=== PATIENT | female | born 1995 | race Caucasian/White ===

== ENCOUNTER → 2018-06-18 12:46 | Outpatient (CLI) | payer MEDICAID, SELFPAY ==
--- NOTE | 2018-06-18 12:52 | RAD_ITS ---
STUDY: X-RAY - RIGHT HAND REASON FOR EXAM: Female, 23 years old. Hand and wrist pain. No known trauma. TECHNIQUE: Three view(s) of the hand. COMPARISON: None. FINDINGS: Bones: There are no acute osseous abnormalities. Joints: The joints are unremarkable. Soft tissues: The soft tissues are unremarkable. Foreign body: None RAD/Hand Min 3 Views IMPRESSION: No acute abnormalities are seen in the hand. Electronically Signed: Elbert Glez MD at 13:04 EDT , Service support ,
== END ==
PROVIDERS: Visit Provider Orthopaedic Surgery
DX: M79.641 Pain in right hand (principal)
CPT/HCPCS: 73130

== ENCOUNTER 2019-03-20 15:50 | Inpatient (IN) | payer MEDICAID, SELFPAY ==
[2019-03-20] MEDS: Lactated Ringers 1,000 ML 50 ML IV (15:57)
[2019-03-20 16:06] VITALS: BMI 23.8
--- NOTE | 2019-03-20 16:30 | HP.PCM_ITS ---
- Problem List (1) 39 weeks gestation of Status: Acute (2) Active labor at term Status: Acute (3) Insufficient care Status: Acute (4) Late care Status: Acute (5) Drug use affecting Status: Acute (6) Tobacco use Status: Acute (7) Rh negative state in antepartum period Status: Acute (8) Anemia affecting Status: Acute History Date of Admission: 03/20/19 Final RAFFY: 03/24/19 Final RAFFY Source: US >20 weeks Gestational age: 39 Weeks and 3 Days History of this : This is a 23 year-old, G 2, P 1001, at 39 weeks gestational age who presents in active labor at 6 cm dilated with a bulging bag of water. Allergies No Known Allergies Allergy (Verified 03/20/19 16:17) Home Medications: Home Medications No122/Iron/Folic Acid [ Multi Tablet] 1 each PO 03/20/19 Smoking Status: Current every day smoker Alcohol: None Substance Use Type: Marijuana Number of Fetus(es): 1 Heart Tracing: Category 2 TOCO Analysis: Regular ctx's History Past Pregnancies: Past Pregnancies Delivery Date Name GA/Weeks Outcome Route Weight Infant Gender Labor Length Anesthesia Delivery Location Provider FOB 40 6lb 13oz Labs: 1 hr GTT normal GBS unknown Hgb 10.6 B negative Antibody screen negative Syphilis neg RI Hep B neg HIV neg Urine cx + UTI, CFC neg Rapid trich neg GC/CT neg UDS + amphetamine and marijuana Expected Infant Delivery Method: Spontaneous Vaginal Number of Visits: 4 visits, patient was late to care and had insufficient care Review of Systems Gynecological: Reports: - - +Ctx's Physical Exam General: Alert, - - Uncomfortable with ctx's HEENT: Atraumatic Lungs: - - No increased resp effort Abdomen: Gravid Extremities:: No edema Neurological: Neuro grossly intact BLOW MOULDING MACHINE OPERATOR: Normal external genitalia Estimated gestational size: Appropriate for gestational size Presentation: Cephalic Cervix Dilation (cm): 6 Station: -1 Effacement (%): 90 Assessment/Plan All Active Problems 39 weeks gestation of (Acute) Active labor at term (Acute) Insufficient care (Acute) Late care (Acute) Drug use affecting (Acute) Tobacco use (Acute) Rh negative state in antepartum period (Acute) Anemia affecting (Acute) This is a 23 year-old, G2, P1001, at 39 weeks gestational age who presents in active labor at 6 cm dilated with a bulging bag of water. Patient was late to care and only had 4 visits. Was last seen at 28 wks. After 28 wks she either did not show for appointments, or cancelled her appointments. - Routine intrapartum care - UDS on admission. Patient states she was using meth in the and last used around 22 weeks. She continued to use marijuana throughout the per her report - GBS unknown - See delivery note - Will also get hepatitis C
[2019-03-20 16:58] LABS: Amphetamine Urine VISTA NEGATIVE (<1000 ng/mL); Barbiturate Urine VISTA NEGATIVE (< 200 ng/mL); Benzodiazepine Urine VISTA NEGATIVE (< 200 ng/mL); Cocaine Urine VISTA NEGATIVE (< 300 ng/mL); Ecstacy Urine VISTA NEGATIVE (< 500 ng/mL); Methadone Urine VISTA NEGATIVE (< 300 ng/mL); PCP Urine VISTA NEGATIVE (< 25 ng/mL); THC Urine VISTA POSITIVE (< 50 ng/mL); Vista UDS pH Range 6
[2019-03-20] MEDS: Oxytocin 30 units/NS 500 ml 30 UNITS/500 ML IV.SOLN 334 UNITS IV (17:14)
[2019-03-20 17:22] LABS: Absolute Lymphocyte Count 2.59 X10^3/ul (0.83-4.51); Absolute Neutrophil Count 8.2 X10^3/uL (2.0-7.7); Basophil# 0.06 X10^3/uL; Basophil% 0.5 % (0-1); Eosinophils% 0.8 % (0-5); Hematocrit 37.4 % (37-47); Hemoglobin 12.1 g/dl (12.0-15.0); Lymphocyte # 2.59 X10^3/ul (4.0); Mean Corp Hgb Conc 32.4 g/gl (32-36); Mean Corpuscular Hgb 27.3 pg (27.0-32.0); Mean Corpuscular Volume 84.4 fL (81-99); Mean Platelet Vol. 10.9 fl (6.2-12.0); Monocyte# 1.33 X10^3/uL; Monocyte% 10.8 % (0-10); Neutrophil % 66.6 % (47-70); Platelet Count 319 K/mm3 (150-450); RBC Distribution Width CV 15.5 % (11.6-14.6); RBC Distribution Width SD 47.4 fl (35.1-43.9); Red Blood Count 4.43 M/mm3 (4.2-5.4); White Blood Count 12.3 K/mm3 (4.4-11.0)
[2019-03-20 17:28] LABS: POSITIVE COUNT NO; POSITIVE DIFFERENTIAL NO; POSITIVE MORPHOLOGY NO
[2019-03-20] MEDS: Oxytocin 30 units/NS 500 ml 30 UNITS/500 ML IV.SOLN 167 UNITS IV (17:45)
--- NOTE | 2019-03-20 17:57 | OP.PCM_ITS ---
Problem List (1) 39 weeks gestation of Status: Acute (2) Active labor at term Status: Acute (3) Insufficient care Status: Acute (4) Late care Status: Acute (5) Drug use affecting Status: Acute (6) Tobacco use Status: Acute (7) Rh negative state in antepartum period Status: Acute (8) Anemia affecting Status: Acute Report of Operation Date of Procedure: 03/20/19 Pre-Operative Diagnosis: 39 week gestation, active labor, late to care, scant care, drug use in the , tobacco use, rh negative status Post-Operative Diagnosis: As above Surgery/Procedure Performed:: VAVD Type of Anesthesia:: Local Specimen's removed: Placenta Drains: None Estimated Blood Loss (mL): 300 Description of Procedure: Patient presented 6 cm dilated with a bulging bag of water. AROM was performed for clear fluid. Patient then progressed quickly to complete with a reducible anterior lip. FHT with variable decelerations with each contraction and good variability in between. Patient pushing and anterior lip reduced. Patient uncomfortable with pushing and therefore there was poor maternal effort. FHT was then 80-90 bpm. Risks, benefits, and alternatives regarding a vacuum assisted vaginal delivery were discussed with the patient and she provided verbal consent. Bladder was emptied just prior to pushing. Station +2 and patient completely dilated. Baby in OA position. Vacuum was applied and used through 2 contractions with 1 pop-off. Vacuum was not reapplied after the 1 pop-off. Patient then pushed with the next 2 contractions, and a midline episiotomy was made. Ritgen maneuver was performed after the episiotomy to assist with delivery of the infant given poor maternal effort. Head, anterior shoulder, posterior shoulder delivered atraumatically. Viable delivered without any force or delay. Cord was clamped and cut immediately and handed off to nursery staff. Cord gases and cord blood were obtained. Placenta delivered intact with fundal massage. Placenta was normal in appearance. 3 vessel cord noted. Fundus firm and bleeding hemostatic. 1st degree tear repaired in usual fashion using 3- 0 vicryl after using local anesthetic. Grafts/Implants Used: None - Complications None - Admit VTE Documentation VTE Present on Admission: No VTE Mechan Device Prophylaxis: None VTE Pharm Prophylaxis ordered?: No Vaginal Delivery Maternal Presentation: Active Labor Amniotic Membrane Rupture Type: Artificial Amniotic Fluid Description: Clear Final RAFFY: 03/24/19 Final RAFFY Source: US >20 weeks Gestational age: 39 Weeks and 3 Days Date of Procedure: 03/20/19 Surgery/ Procedure Performed: Vacuum Assisted Vaginal Delivery Type of Anesthesia: Local with 1% lidocaine Presentation: Vertex Placental Delivery Description: Expressed Cord Vessel Description: 3 Vessels Cord Entanglement: None Estimated Blood Loss: 300 A gender: Male (1 minute): 8 (5 minute): 9 Episiotomy Description: Midline, 1st degree Laceration: 1st degree Medications given after delivery: IV Pitocin Complications: None Baby B - Information Amniotic Membrane Rupture Type: Artificial Presentation: Vertex - Operative Information Cord Entanglement: None Cord Vessel Description: 3 Vessels B gender: Male (1 minute): 8 (5 minute): 9
[2019-03-20 18:17] LABS: Group B Strep DNA By PCR Negative (Negative); Internal Control PASS; Probe Check PASS; Specimen Processing Control PASS
[2019-03-20] MEDS: Ibuprofen 600 MG Tablet PO (18:55)
[2019-03-21] VITALS (8 sets, daily range): BP systolic 118–149; BP diastolic 65–91; PULSE 65–97; RESP 16–18; TEMP 36.3–36.8; O2SAT 97–99
[2019-03-21] MEDS: Ibuprofen 600 MG Tablet PO ×3 (04:07→18:49)
--- NOTE | 2019-03-21 08:28 | PN.OBGYN_ITS ---
Patient Problems: Active and Suspected Problems 39 weeks gestation of (Acute) Active labor at term (Acute) Insufficient care (Acute) Late care (Acute) Drug use affecting (Acute) Tobacco use (Acute) Rh negative state in antepartum period (Acute) Anemia affecting (Acute) Subjective: Patient doing well. No DODGE, vision changes, abd pain, N/.V. [place] reg diet. Ambulating and voiding without difficulty. No CP, SOB, leg pain. . Lochia normal. Feels ready to go home - Physical Exam General: Alert, No apparent distress HEENT: Atraumatic Lungs: - - No increased resp effort Abdomen: Soft, Non Tender, - - FF@U-1 Extremities: No edema Skin: No rashes Neurological: Neuro grossly intact Psych/Mental Status: Normal Affect, Appropriate Vital Signs Temp Pulse Resp BP 98.3 F 74 18 149/91 H 03/21/19 04:08 03/21/19 04:08 03/21/19 04:08 03/21/19 04:08 Weight: 130 lb Body Mass Index (BMI) 23.8 Intake and Output for Last 24 Hours 03/19/19 03/20/19 03/21/19 23:59 23:59 23:59 Output Total 200 / 200 Balance -200 / -200 Laboratory Tests Past 24 Hrs 03/20/19 03/20/19 03/20/19 16:15 16:15 16:15 WBC 12.3 H RBC 4.43 Hgb 12.1 Hct 37.4 MCV 84.4 MCH 27.3 MCHC 32.4 RDW 15.5 H RDW Differential 47.4 H Plt Count 319 MPV 10.9 Immature Gran % (Auto) 0.300 Neut % (Auto) 66.6 Lymph % (Auto) 21.0 Pershing % (Auto) 10.8 H Eos % (Auto) 0.8 Baso % (Auto) 0.5 Absolute Neuts (auto) 8.2 H Absolute Lymphs (auto) 2.59 Total Counted Not Reportable Urine Opiates Screen Urine Methadone Screen Ur Barbiturates Screen Ur Phencyclidine Scrn Ur Amphetamines Screen U Methamphetamin-MDMA U Benzodiazepines Scrn Urine Cocaine Screen U Cannabinoids Screen Ur Drug Screen Comment Hepatitis C Ab (EIA) Group B Strep DNA Negative Specimen Comment Not Reportable Blood Type B NEGATIVE Antibody Screen NEGATIVE Screen Baby's Blood Type Baby's FOZIA 03/20/19 03/20/19 03/20/19 16:40 18:20 18:20 WBC RBC Hgb Hct MCV MCH MCHC RDW RDW Differential Plt Count MPV Immature Gran % (Auto) Neut % (Auto) Lymph % (Auto) Pershing % (Auto) Eos % (Auto) Baso % (Auto) Absolute Neuts (auto) Absolute Lymphs (auto) Total Counted Urine Opiates Screen NEGATIVE Urine Methadone Screen NEGATIVE Ur Barbiturates Screen NEGATIVE Ur Phencyclidine Scrn NEGATIVE Ur Amphetamines Screen NEGATIVE U Methamphetamin-MDMA NEGATIVE U Benzodiazepines Scrn NEGATIVE Urine Cocaine Screen NEGATIVE U Cannabinoids Screen POSITIVE H Ur Drug Screen Comment Hepatitis C Ab (EIA) Pending Group B Strep DNA Specimen Comment Blood Type Antibody Screen Screen NEGATIVE Baby's Blood Type AB POSITIVE Baby's FOZIA NEGATIVE Medical Necessity - Tobacco Use Smoking Status: Current every day smoker Assessment/Plan All Active Problems 39 weeks gestation of (Acute) Active labor at term (Acute) Insufficient care (Acute) Late care (Acute) Drug use affecting (Acute) Tobacco use (Acute) Rh negative state in antepartum period (Acute) Anemia affecting (Acute) PPD#1 s/p - Isolated mild range BP. No pre-e symptoms. Will continue to monitor throughout the day today. D/w pt if SBP's persistently 140's or greater will need to start BP medication, get pre-e labs, and monitor overnight - Otherwise AF, VSS - To see social work prior to discharge - Dispo: Patient desires to go home today. Likely d/c home if BP's normal
--- NOTE | 2019-03-21 08:28 | PCM.DCVAG ---
Discharge Diet: No Restrictions Discharge Activity: Return to Normal Activity, May Shower, May Take a Tub Bath May resume sexual activity in: 6 weeks Weight Bearing Status: Weight bearing as tolerated, Full weight bearing Lifting Restrictions: None Call your doctor if you observe: Fever of 101 or Higher, Inability to urinate, Inability to have a bowel movement, Using more than one pad per hour, Shortness of breath, Dizziness, Fainting spells, Chest pain, Increased palpitations (irregular heartbeat), Calf discomfort, Uncontrolled pain Instructions: After a Vaginal Additional Instructions: If you experience any of the following, contact your healthcare provider. Bleeding that soaks a pad every hour for 2 hours Fever 100.4 or higher Unrelieved incision or abdominal pain Swelling, redness, discharge or bleeding from your incision or episiotomy site Your incision begins to separate Problems urinating (including inability to urinate or burning while urinating). Visual changes Severe headache Flu-like symptoms Pain or redness in one of both of your breasts Pain, warmth, tenderness or swelling in your legs, especially the calf area Frequent nausea and vomiting Symptoms of depression or anxiety If you experience any of the following, call 911 or go to the nearest Emergency Room. Chest pain Problems breathing Seizure activity Partial or complete paralysis of a body part, slurred speech, weakness or drooping of the face, or a sudden inability to walk or hold your balance Allergies/Adverse Reactions: Allergies No Known Allergies Allergy (Verified 03/20/19 16:17) Medications to take at Discharge No122/Iron/Folic Acid [ Multi Tablet] 1 each PO 03/20/19 When: In 1-2 weeks, and then in 6 weeks Primary Care Physician: Care Physician,No Primary [Primary Care Provider] - Test Results: Test results from this visit will be discussed in further detail at your follow-up appointment, if applicable. Proposed Discharge Date: 03/21/19 - Please call Demetra prior to discharge. If blood pressures normal throughout the day, ok to d/c. If additional mild range BP's, pt will not be discharge
--- NOTE | 2019-03-21 08:31 | DCINST_ITS ---
Discharge Diet: No Restrictions Discharge Activity: Return to Normal Activity, May Shower, May Take a Tub Bath May resume sexual activity in: 6 weeks Weight Bearing Status: Weight bearing as tolerated, Full weight bearing Lifting Restrictions: None Call your doctor if you observe: Fever of 101 or Higher, Inability to urinate, Inability to have a bowel movement, Using more than one pad per hour, Shortness of breath, Dizziness, Fainting spells, Chest pain, Increased palpitations (irregular heartbeat), Calf discomfort, Uncontrolled pain Instructions: After a Vaginal Additional Instructions: If you experience any of the following, contact your healthcare provider. * Bleeding that soaks a pad every hour for 2 hours * Fever 100.4 or higher * Unrelieved incision or abdominal pain * Swelling, redness, discharge or bleeding from your incision or episiotomy site * Your incision begins to separate * Problems urinating (including inability to urinate or burning while urinating). * Visual changes * Severe headache * Flu-like symptoms * Pain or redness in one of both of your breasts * Pain, warmth, tenderness or swelling in your legs, especially the calf area * Frequent nausea and vomiting * Symptoms of depression or anxiety If you experience any of the following, call 911 or go to the nearest Emergency Room. * Chest pain * Problems breathing * Seizure activity * Partial or complete paralysis of a body part, slurred speech, weakness or drooping of the face, or a sudden inability to walk or hold your balance Allergies/Adverse Reactions: Allergies No Known Allergies Allergy (Verified 03/20/19 16:17) Medications to take at Discharge No122/Iron/Folic Acid [ Multi Tablet] 1 each PO 03/20/19 When: In 1-2 weeks, and then in 6 weeks Primary Care Physician: Care Physician,No Primary [Primary Care Provider] - Test Results: Test results from this visit will be discussed in further detail at your follow- up appointment, if applicable. Proposed Discharge Date: 03/21/19 - Please call Demetra prior to discharge. If blood pressures normal throughout the day, ok to d/c. If additional mild range BP's, pt will not be discharge
[2019-03-21] MEDS: Acetaminophen 500 MG Tablet 1000 MG PO (08:57)
[2019-03-21] MEDS: Senna/Docusate Sodium 1 Tablet PO (10:53)
[2019-03-22] MEDS: Ibuprofen 600 MG Tablet PO ×2 (01:54→13:28)
[2019-03-22 01:57] VITALS: BP 127/75; PULSE 85; RESP 20; TEMP 36.6
--- NOTE | 2019-03-22 08:01 | PCM.PN.OB ---
Patient Problems: Active and Suspected Problems 39 weeks gestation of (Acute) Active labor at term (Acute) Insufficient care (Acute) Late care (Acute) Drug use affecting (Acute) Tobacco use (Acute) Rh negative state in antepartum period (Acute) Anemia affecting (Acute) Subjective: pt seen at bedside doing well. pt reports good pain control. lochia mild. Bottle feeding- infant not in room at this time - Physical Exam General: Alert, Oriented x3 Abdomen: Soft, Non Tender, Non-Distended, - - fundus firm Vital Signs Temp Pulse Resp BP Pulse Ox 97.9 F 85 20 H 127/75 H 99 03/22/19 01:57 03/22/19 01:57 03/22/19 01:57 03/22/19 01:57 03/21/19 15:55 Oxygen Delivery Method Room Air Weight: 58.967 kg Body Mass Index (BMI) 23.8 Intake and Output for Last 24 Hours 03/20/19 03/21/19 03/22/19 23:59 23:59 23:59 Intake Total 1200 / 1200 Output Total 200 / 200 Balance -200 / -200 1200 / 1200 Medical Necessity - Tobacco Use Smoking Status: Current every day smoker Assessment/Plan All Active Problems 39 weeks gestation of (Acute) Active labor at term (Acute) Insufficient care (Acute) Late care (Acute) Drug use affecting (Acute) Tobacco use (Acute) Rh negative state in antepartum period (Acute) Anemia affecting (Acute) PPD#2, doing well routine care pain mgmt dc home sw to see patient today
[2019-03-22 08:10] VITALS: BP 123/60; PULSE 71; RESP 14; TEMP 36.9
--- NOTE | 2019-03-22 11:00 | CASEMGMT ---
Social Work Assessment Labor and Delivery Unit Date of Referral: 03/22/19 Time of Referral: 10:15A Referred By: NURSING Date of Intervention: 03/22/19 Time of Intervention: 11:00A Reason for Referral: D/C PLANNING, MOTHER OF BABY (MOB) WITH LATE CARE ( CARE DURING 22-28 WEEKS), HX SUBSTANCE ABUSE, POSITIVE TOX SCREEN FOR MARIJUANA (BABY URINE POSITIVE FOR MARIJUANA) AND HX MENTAL HEALTH. NURSING VOICED CONCERNS WITH MOB SWEARING AT BABY LAST EVENING D/T DIRTY DIAPER, BABY OUT OF ROOM FOR MOST OF NIGHT AND MORNING. History obtained from: CHART, MOB, NURSING Household composition: MOB REPORTS STAYS WITH MOTHER, JUANA DESAI IN [place] ([id number] [facility], [facility]) AND FRIEND IN [facility]-UNABLE TO RECALL ADDRESS. Patient's parent/guardian status: MOB REPORTS FATHER OF BABY (FOB), SMITA VAZQUEZ HAS CUSTODY OF 2 YEAR OLD DAUGHTER, TIFFANY. Educational Status: MOB REPORTS GRADUATED FROM HIGH SCHOOL. Financial Status: MOB STATES IS NOT CURRENTLY WORKING AND IS IN THE PROCESS OF GETTING FOOD STAMPS AND HAWKINS ASSISTANCE. Infant Supplies: MOB STATES IS TRYING TO BREAST FEED. REPORTS HAS ALL NEEDS MET FOR BABY-BASSINET, DIAPERS, CLOTHES Childcare/Caregiver(s): MOB REPORTS HAS SUPPORT FROM FAMILY AND FRIENDS. MOB STATES FOB IS INVOLVED. Transportation: MOB DENIES ANY TRANSPORTATION CONCERNS. Programs/Agencies Involved: [facility], [employer]. Children Services/Legal Issues: MOB REPORTS [facility] INVOLVED FOR DAUGHTER- FOB HAS CUSTODY. Behavioral Health Issues: Mental Health History: MOB DENIES ANY HX OF MENTAL HEALTH. Substance Use History: MOB DENIED HX OF SUBSTANCE ABUSE WHEN FIRST QUESTIONED. UPON FURTHER QUESTIONING, MOB ADMITTED TO METH USE DURING , STOPPED USE AROUND 22 WEEKS. MOB ADMITTED TO MARIJUANA AND TOBACCO USE THROUGHOUT . Drug Screens: MOB POSITIVE FOR MARIJUANA USE UPON ADMISSION. BABY'S URINE POSITIVE, MEC SENT OUT. Family/Social Stressors: MOB REPORTS ON LIST FOR [employer] AND IS CURRENTLY LIVING BETWEEN HOUSES-MOTHER AND FRIEND'S. Support Systems: LIMITED SUPPORT- MOB DECLINES ANY NEEDS FOR REFERRALS (IE HELP ME GROW, WIC) Depression/Shaken Baby/Safe Sleeping MOB VERBALIZED UNDERSTANDING OF PPD, SHAKEN BABY, AND SAFE SLEEPING AND GAVE APPROPRIATE RESPONSES DURING DISCUSSION. ASSESSMENT: INTRODUCED ROLE AND REASON FOR REFERRAL. BABY BOY, FLAQUITA VAZQUEZ AT BEDSIDE DURING ASSESSMENT. ОЛЕГ REPORTS IS LIVING IN BETWEEN HER MOTHER'S HOME AND A FRIEND'S HOME AND STATES HAS PLACE TO RETURN TO UPON D/C. MOB PROVIDED THIS WORKER WITH HER MOTHER'S ADDRESS ([id number] [facility]) MOB STATES HAS ALL NEEDS MET FOR BABY AND DENIES ANY NEEDS FOR REFERRALS. AT FIRST, MOB DENIED ANY HX OF SUBSTANCE ABUSE. UPON FURTHER QUESTIONING MOB ADMITTED TO METH USE AND MARIJUANA USE DURING . METH USE UP UNTIL 22 WEEKS AND MARIJUANA USE THROUGHOUT. INFORMED MOB THIS WORKER WILL BE MAKING A REPORT TO CHILDREN SERVICES D/T POSITIVE SCREENS AND CONCERNS MOB DOES NOT HAVE CUSTODY OF 2 YEAR OLD DAUGHTER. MOB VERBALIZED UNDERSTANDING. MOB APPEARED GUARDED THROUGHOUT ASSESSMENT. MOB DENIES ANY HX OF MENTAL HEALTH. INFORMED MOB THIS WORKER WILL FOLLOWING UP. Safe Plan of Care for related to substance use: MOB DENIES ANY CONTINUED USE AND STATES HE WILL BE SAFE. PLAN: TBD-REPORT TO BE MADE TO [facility] D/T SAFETY CONCERNS FOR BABY. SEE ABOVE. -Emma Cardona, STRATEGIC PLANNING MANAGER, FIGURE MODEL
--- NOTE | 2019-03-22 11:05 | CASEMGMT ---
SOCIAL WORK CALL TO [facility], SPOKE WITH DI. PER DI, NO OPEN CASE AT THIS TIME. CALL TO [facility], REPORT MADE TO ELECTRICIAN JOURNEYMAN WIREMAN, CLEOPATRA. REPORTED POSITIVE URINE SCREEN FOR MOB AND BABY FOR MARIJUANA-MEC SENT OUT, MOB DOES NOT HAVE CUSTODY OF 2 YEAR OLD, CONCERNS FROM NURSING STAFF, AND MOB LIVING BETWEEN 2 HOUSES. INFORMED MOB HAS D/C ORDER THIS DAY. CLEOPATRA STATES WILL DISCUSS WITH ENGLISH INSTRUCTOR AND GET BACK TO THIS WORKER. MALICK BOWEN, PHARMACY TEACHER, BACKUP OPERATOR.
--- NOTE | 2019-03-22 12:35 | CASEMGMT ---
SOCIAL WORK RECEIVED CALL BACK FROM CLEOPATRA WITH CHILDREN SERVICES. INFORMED CLEOPATRA SPOKE WITH FISH CAKE MAKER AND CASE HAS BEEN SCREENED IN. CHILDREN SERVICES WILL NOT BE ASSESSING MOB PRIOR TO D/C. WATCH AND CLOCK MAKER AND REPAIRER, DEBORA JOHNSON WILL BE FOLLOWING UP WITHIN NEXT 24 HOURS. NURSING UPDATED.
[2019-03-22 13:58] VITALS: BP 136/84; PULSE 89; RESP 16; TEMP 36.7; O2SAT 99
--- NOTE | 2019-03-22 14:07 | CASEMGMT ---
SOCIAL WORK THIS WORKER BACK TO MOB'S ROOM TO CONTINUE TO DISCUSS SAFE D/C PLANNING. MOB UNABLE TO PROVIDE THIS WORKER WITH MOTHER'S PHONE NUMBER STATING, SHE DOES NOT HAVE A PHONE. MOB UNABLE TO PROVIDE THIS WORKER WITH ADDRESS FOR FRIEND'S HOME IN [place]. MOB DID NOT APPEAR CLEAR ON WHERE SHE AND BABY WOULD BE GOING UPON D/C FOR CHILDREN SERVICES TO FOLLOW UP. CALL TO [facility] TO UPDATE ON THE ABOVE, SPOKE WITH CLEOPATRA. CLEOPATRA TO UPDATE HYDROTEL OPERATOR AND GET BACK TO THIS WORKER. NURSING AND PHYSICIAN UPDATED ON THE ABOVE. MALICK BOWEN, GAUGER DELIVERY, RECLAMATION SUPERVISOR.
--- NOTE | 2019-03-22 14:22 | CASEMGMT ---
SOCIAL WORK RECEIVED CALL BACK FROM CLEOPATRA WITH CHILDREN SERVICES. PER CLEOPATRA, INTERIOR DESIGN TEACHER, TIMMY WILL BE IN BY 3PM TO MEET WITH MOB TO DISCUSS SAFE PLAN FOR DISCHARGE. NURSING UPDATED. MALICK BOWEN, LOCOMOTIVE MECHANIC, HYDRAULIC ENGINEER.
--- NOTE | 2019-03-22 15:00 | CASEMGMT ---
SOCIAL WORK [facility] WORKER, TIMMY HERE TO MEET WITH PATIENT. MALICK BOWEN, GARMENT TURNER, CHIEF DISPATCHER SERVICE.
--- NOTE | 2019-03-22 15:20 | CASEMGMT ---
SOCIAL WORK CHILDREN SERVICES TRUCK FARMER, TIMMY ATTEMPTED TO CALL FOB'S GRANDPARENT'S WHO MOB REPORTS WILL BE TRANSPORTING MOB AND BABY TO FRIEND'S HOUSE IN [place]. LEFT MESSAGE. TRUCK FARMER REQUESTED MOB OBTAIN ADDRESS AND PHONE NUMBER FOR FRIENDHIRAL FOR TRUCK FARMER TO CONFIRM SAFE PLAN. MOB REPORTED HIRAL DOES NOT TEXT, BUT WILL CONTACT HER ON Top Hat MESSENGER. TRUCK FARMER THEN CALLED FOB TO DISCUSS SAFE D/C PLAN. FOB REPORTS WILL BE IN AFTER WORK TO SIGN CERTIFICATE AND MEET WITH TRUCK FARMER AND MOB. NURSING AWARE. THIS WORKER TO FOLLOW UP. MALICK BOWEN, BUDGET SPECIALIST, QUALITY REVIEW TRAINER.
--- NOTE | 2019-03-22 15:50 | CASEMGMT ---
SOCIAL WORK THIS WORKER TO MOB'S ROOM TO UPDATE ON STATUS OF D/C PLAN. MOB REPORTS JUST GOT OFF THE PHONE WITH FOB, SMITA TAYLOR AND SHE AND BABY WILL BE GOING HOME WITH HIM UPON DISCHARGE. FOB TO BE OFF WORK AROUND [id number]. INFORMED [facility] WORKER WILL FOLLOW UP ON PLAN. MOB VERBALIZED UNDERSTANDING. MALICK BOWEN, ROAD GRADER OPERATOR, HOSE SPRAYER.
--- NOTE | 2019-03-22 17:12 | CASEMGMT ---
SOCIAL WORK UPDATED FROM NURSING, CHILDREN SERVICES WORKER, TIMMY MET WITH FOB AND MOB IN ROOM. D/C PLAN IS FOR MOB AND BABY, FLAQUITA TO D/C HOME WITH SMITA AYALA. CHILDREN SERVICES TO FOLLOW. MALICK BOWEN, OUTSIDE SALESMAN, WIRE TWISTING MACHINE OPERATOR.
[2019-03-23 09:39] LABS: Hep C Antibodies <0.1 s/co ratio (0.0-0.9)
--- NOTE | 2019-03-26 18:46 | NURSING ---
Follow up phone call made and encouraged to call if we can be of assistance. Varghese RN IBCLC
== END 2019-03-22 17:45 | disposition home or self-care (01) | DRG 560 ==
PROVIDERS: Admitting Provider Obstetrics & Gynecology; Visit Provider Obstetrics & Gynecology
DX: O99.02 Anemia complicating childbirth (principal); D64.9 Anemia, unspecified; O76 Abnormality in fetal heart rate and rhythm complicating labor and delivery; O99.324 Drug use complicating childbirth; F15.90 Other stimulant use, unspecified, uncomplicated; F12.90 Cannabis use, unspecified, uncomplicated; O99.334 Smoking (tobacco) complicating childbirth; Z3A.39 39 weeks gestation of pregnancy; Z37.0 Single live birth
CPT/HCPCS: 59050; 80307; 85025; 85461; 86803; 86850; 86900; 87081; 87653; 90384; 99218; J7120; G0378; J2790

== ENCOUNTER → 2020-01-10 | Outpatient (CLI) | payer MEDICAID, SELFPAY ==
[2020-01-10 17:59] LABS: hCG Titer Quant., Serum 40317 mIU/mL (1-3)
== END | disposition home or self-care (01) ==
LOC: LAB 16:37
PROVIDERS: Referring Provider Obstetrics & Gynecology; Visit Provider Obstetrics & Gynecology
DX: O20.0 Threatened abortion (principal)
CPT/HCPCS: 36415; 84702

== ENCOUNTER → 2020-01-12 15:52 | Outpatient (CLI) | payer MEDICAID, SELFPAY ==
[2020-01-12 17:11] LABS: hCG Titer Quant., Serum 32627 mIU/mL (1-3)
== END ==
PROVIDERS: Referring Provider Obstetrics & Gynecology; Visit Provider Obstetrics & Gynecology
DX: O20.0 Threatened abortion (principal); Z3A.00 Weeks of gestation of pregnancy not specified
CPT/HCPCS: 36415; 84702

== ENCOUNTER → 2020-01-14 | Outpatient (CLI) | payer MEDICAID, SELFPAY ==
--- NOTE | 2020-01-14 14:08 | US_ITS ---
STUDY: SECOND AND THIRD TRIMESTER OBSTETRICAL ULTRASOUND - LIMITED REASON FOR EXAM: Female, 24 years old DATING/ GESTATIONAL AGE -- AMENORRHEA -- LMP UNKNOWN -- PATIENT GAVE 9 MONTHS AGO- NEVER HAD A CYCLE LMP: Unknown. PRIOR ULTRASOUND: None. TECHNIQUE: Transabdominal TECHNICAL QUALITY: Adequate. FINDINGS: There is a single intrauterine fetus. The fetus is in a cephalic presentation. There is demonstrated cardiac activity with a heart rate of 172 bpm. There is a normal amniotic fluid volume. The largest amniotic fluid pocket measures 4.3 cm x 8.9 cm. The amniotic fluid index (RAFY) is 12.9 cm. The placenta is posterior in location and is not low lying. There are Grade 0 placental changes. The cervix measures 3.4 cm in length. BIOMETRY: BPD: 5.52 cm: 22 weeks, 6 days HC: 21.01 cm: 23 weeks, 1 days AC: 19.86 cm: 24 weeks, 4 days FL: 4.08 cm: 23 weeks, 2 days Age by LMP: Unknown. age by current US: 23 weeks, 4 days. RAFFY by current US: May 08, 2020. Estimated weight: 631 grams, +/- 92 grams, US/OB Limited With Biometrics IMPRESSION: Single live uterine gestation with a mean gestational age of 23 weeks and 4 days. Electronically Signed: Emil Ignacio, at 12:31 EDT , Service support ,
== END | disposition home or self-care (01) ==
LOC: US 14:08
PROVIDERS: Referring Provider Obstetrics & Gynecology; Visit Provider Obstetrics & Gynecology
DX: N91.2 Amenorrhea, unspecified (principal)
CPT/HCPCS: 76816

== ENCOUNTER 2020-03-06 13:54 | Outpatient (CLI) | payer MEDICAID, SELFPAY ==
[2020-03-06] VITALS (11 sets, daily range): BP systolic 124–146; BP diastolic 66–80; PULSE 92–126; RESP 16; TEMP 36.3–38.3; O2SAT 96–100; BMI 21.0
--- NOTE | 2020-03-06 14:34 | US_ITS ---
STUDY: RENAL ULTRASOUND - COMPLETE REASON FOR EXAM: Female, 24 years old. Right flank pain patient is TECHNIQUE: Ultrasound evaluation of the kidneys was performed with real-time and static correia-scale imaging. COMPARISON: None. FINDINGS: RIGHT KIDNEY: Normal location of the right kidney, which is normal in size. The right kidney measures 12.5 x 4.8 x 5.4 cm. There is a normal cortex of the right kidney. The renal cortex measures 2.4 cm. There is no right renal mass or cyst. There are no right renal calculi. There is mild hydronephrosis of the right kidney, this may be -induced. DISTAL RIGHT URETER: There is non-visualization of the distal right ureter. There is no demonstrated right ureterovesical junction calculus. There is a visualized right ureteral jet. LEFT KIDNEY: Normal location of the left kidney, which is normal in size. The left kidney measures 11.2 x 4.6 x 4.4 cm. There is a normal cortex of the left kidney. The renal cortex measures 1.6 cm. There is no left renal mass or cyst. There are no left renal calculi. There is no left hydronephrosis. DISTAL LEFT URETER: There is non-visualization of the distal left ureter. There is no demonstrated left ureterovesical junction calculus. There is a visualized left ureteral jet. AORTA: There is no elongation or tortuosity of the abdominal aorta. I.V.C.: The IVC is patent. BLADDER: The bladder is incompletely distended US/Kidney and Bladder IMPRESSION: Mild right hydronephrosis, likely -induced. No obstructing stone or mass noted. Sonographically normal left kidney Bladder is incompletely distended Electronically Signed: Lc Armenta MD at 16:48 EDT , Service support ,
--- NOTE | 2020-03-06 14:38 | ED.VIS.GEN ---
History of Present Illness Chief Complaint: Flank Pain Narrative: Patient is a 24-year-old female who is 31 weeks . She presents with right flank pain. This is been present for 4 days. She describes it as a constant aching pain. Although the triage note had reported radiation to the groin patient denied this to me. She states she had prior similar symptoms with a kidney infection with her last . She denies any lower urinary symptoms such as dysuria, frequency, urgency. No abdominal or pelvic pain. She denies fever cough congestion chest pain shortness of breath vomiting or diarrhea. Past Medical History - Allergies and Home Meds Allergies/Adverse Reactions: Allergies No Known Allergies Allergy (Verified 03/06/20 13:59) Primary Care Physician: Care Physician,No Primary [Primary Care Provider] - Past Medical History: None Smoking Status: Current some day smoker Review of Systems All systems negative except as indicated General: Denies: Fever Eyes: Denies: Visual changes - bilaterally Cardiovascular: Denies: Chest pain Respiratory: Denies: Dyspnea Gastrointestinal: Denies: Abdominal pain, Nausea, Vomiting, Diarrhea Genitourinary: Reports: - - Right flank pain. Denies: Dysuria, Frequency Musculoskeletal: Denies: Myalgias, Arthralgias Skin: Denies: Rash Neurological: Denies: Headache Physical Exam Vital Signs/Narrative: Vital Signs Temp Pulse Resp BP Pulse Ox 03/06/20 13:56 97.6 F L 115 H 16 146/76 H 98 Inital Vital Signs reviewed: Yes General: Well nourished, Well developed Head: Normocephalic Eyes: EOMI ENT: Moist mucous membranes Neck: Supple Cardiovascular: Regular rhythm, Tachycardia Respiratory: No distress, CTA bilaterally Abdomen: Soft, Nontender, Nondistended Back: Nontender Extremities: Nontender Skin: Normal color Neurological: Alert Psychological: Normal affect Diagnostic/Tx/Re-eval - Medical Decision Making Patient's differential is broad including pyelonephritis, ureterolithiasis, labor. Additionally her blood pressure is noted to be elevated. She will require further work-up including labs for preeclampsia. I spoke to her WELFARE ADVISER, Dr. Costello, who asked that we go ahead and start labs get an IV established and enter an order for a renal ultrasound and start a bolus of lactated Ringer's but asked that we transfer the patient to OB triage so that they may evaluate the patient and follow-up on the studies. Patient will be discharged to OB triage ED Disposition - Plan for ED Patient: Diagnosis: , Flank pain, Elevated blood pressure affecting in third trimester, antepartum Referrals: Care Physician,No Primary [Primary Care Provider] -
[2020-03-06] MEDS: Lactated Ringers 1,000 ML 999 ML IV ×2 (14:46→14:55)
[2020-03-06 14:56] LABS: Absolute Neutrophil Count 16.8 X10^3/uL (2.0-7.7); Basophil# 0.05 X10^3/uL; Basophil% 0.2 % (0-1); Eosinophil# 0.07 X10^3/uL; Eosinophils% 0.3 % (0-5); Hematocrit 34.5 % (37-47); Hemoglobin 11.1 g/dL (12.0-15.0); Lymphocyte % 6.3 % (19-41); Mean Corp Hgb Conc 32.2 g/dL (32-36); Mean Corpuscular Hgb 28.2 pg (27.0-32.0); Mean Corpuscular Volume 87.8 fL (81-99); Mean Platelet Vol. 9.9 fl (6.2-12.0); Monocyte# 2.23 X10^3/uL; Monocyte% 10.8 % (0-10); NRBC Flagged by Analyzer 0 % (0-5); Neutrophil # 16.78 X10^3/uL (2.7-7.7); Neutrophil % 81.4 % (47-70); POSITIVE DIFFERENTIAL YES; Platelet Count 239 K/mm3 (150-450); RBC Distribution Width CV 12.4 % (11.6-14.6); RBC Distribution Width SD 39.8 fl (35.1-43.9); Red Blood Count 3.93 M/mm3 (4.2-5.4); White Blood Count 20.6 K/mm3 (4.4-11.0)
[2020-03-06 15:03] LABS: Differential Indicated SCAN CRITERIA MET
[2020-03-06 15:16] LABS: ALB/GLOB Ratio 0.4 RATIO (0.9-2.4); AST(SGOT) 16 U/L (15-37); Alanine Aminotransfer ALT/SGPT 9 U/L (13-56); Alkaline Phosphatase 172 U/L (45-117); Anion Gap 6 (5-15); BUN 5 mg/dL (7-18); BUN/Creat Ratio 9.3 RATIO (10-20); Calcium,Total 9.2 mg/dL (8.5-10.1); Chloride 101 mmol/L (98-107); Creatinine, Serum 0.54 mg/dL (0.55-1.02); EST Glomerular Filtration Rate 147 mL/min (>60); Est Glom Filt Rate - Afr Amer 178 mL/min (>60); Estimated Creatinine Clearance 127.05 ml/min; Glucose 89 mg/dL (74-106); Potassium 4.1 mmol/L (3.5-5.1); Sodium Level 132 mmol/L (136-145)
[2020-03-06 16:18] LABS: Color, Urine Yellow (Yellow); Glucose, Dipstick Normal (Normal); Leukocyte Esterase-Dipstick 500 /ul (Negative); Nitrite-Dipstick Positive (Negative); Occult Blood-Urine 50 /ul (Negative); Protein-Dipstick 100 mg/dl (Negative); Urine Clarity Sl. Cloudy (Clear); Urine Urobilinogen 8 mg/dl (Normal)
[2020-03-06 16:23] LABS: Urine Bilirubin Dipstick 1 mg/dL (Negative)
[2020-03-06 16:25] LABS: Ketone-Dipstick 150 mg/dl (Negative)
[2020-03-06 16:29] LABS: Bacteria 2+ /hpf (None Seen); Mucous, Urine 1+ /hpf (<or=2+); Red Blood Cells-Urine 0-5 SEEN /hpf (0-5); Squamous Epithelial Cells - UA 0-5 SEEN /hpf (5-10); White Blood Cells 25-50 SEEN /hpf (0-5)
[2020-03-06 16:33] LABS: Differential Comment SCANNED; Platelet Estimate ADEQUATE (ADEQ); Polychromasia RARE
[2020-03-06 16:45] LABS: Protein, Urine (Random) 225.9 mg/dL (<11.9); Protein:Creat Ratio 1537 mg/g CRE (0-200)
[2020-03-06 16:45] LABS: International Normalized Ratio 1.1; Prothrombin Time (Protime)PT. 13.5 SECONDS (11.7-14.9)
[2020-03-06 16:46] LABS: Partial Thromboplast Time 29.9 Seconds (24.1-36.2)
[2020-03-06] MEDS: Lactated Ringers 1,000 ML 200 ML IV (17:03)
[2020-03-06 17:29] LABS: Amphetamine Urine VISTA POSITIVE (<1000 ng/mL); Barbiturate Urine VISTA NEGATIVE (< 200 ng/mL); Benzodiazepine Urine VISTA NEGATIVE (< 200 ng/mL); Cocaine Urine VISTA NEGATIVE (< 300 ng/mL); Ecstacy Urine VISTA NEGATIVE (< 500 ng/mL); Methadone Urine VISTA NEGATIVE (< 300 ng/mL); PCP Urine VISTA NEGATIVE (< 25 ng/mL); THC Urine VISTA POSITIVE (< 50 ng/mL); Vista UDS pH Range 6
[2020-03-06] MEDS: 0.9% Normal Saline 1,000 ML 125 ML IV (18:35)
--- NOTE | 2020-03-06 18:35 | US_ITS ---
STUDY: SECOND AND THIRD TRIMESTER OBSTETRICAL ULTRASOUND REASON FOR EXAM: Female, 24 years old. Growths and RAFY. Patient has a fever. LMP: Unknown. TECHNIQUE: Transabdominal TECHNICAL QUALITY: Adequate. PRIOR ULTRASOUND: January 14, 2020. FINDINGS: There is a single intrauterine fetus. The fetus is in a cephalic presentation. There is demonstrated cardiac activity with a heart rate of between 170 and 183 bpm. There is a normal amniotic fluid volume. The largest amniotic fluid pocket measures 3.8 cm. The amniotic fluid index (RAFY) is 11.03 cm. The placenta is posterior in location and is not low lying. There are Grade 1 placental changes. The cervix measures 3 in length. The adnexal regions are not visualized. BIOMETRY: BPD: 7.58 cm: 30 weeks, 3 days HC: 29.05 cm: 32 weeks, 1 days AC: 28.11 cm: 32 weeks, 2 days FL: 6.06 cm: 21 weeks, 4 days CI: 79 FL/BPD: 80 FL/HC: FL/AC: 22 HC/AC: 1.03 age by current US: 31 weeks, 5 days. RAFFY by current US: May 03, 2020. Estimated weight: 1838 grams, +/- 268 grams, 65 %. age by prior US: 31 weeks, 0 days. RAFFY by prior US: May 08, 2020. US/OB Limited With Biometrics IMPRESSION: 1. Live single intrauterine at 31 weeks, 5 days. RAFFY is May 03, 2020. There is adequate interval growth when compared to prior study. 2. EFW 1838 g. 3. RAFY of 11.03 cm. 4. Fluctuating heart rate between 100 7183 bpm. 5. Anterior grade 1 placenta. 6. Vertex presentation. Electronically Signed: Hadley Sherman DO at 20:47 EDT Tel [phone], Service support ,
[2020-03-06] MEDS: Acetaminophen 500 MG Tablet 1000 MG PO (18:48)
[2020-03-06] MEDS: Ceftriaxone 1 GM/50 ML BAG IV (19:05)
[2020-03-06] MEDS: Betamethasone/Betamethasone 30 MG/5 ML Vial 12 MG IM (19:08)
[2020-03-06] MEDS: Mag Hydrox/Al Hydrox/Simeth 30 ML UDC PO (21:26)
[2020-03-07 03:45] VITALS: BP 107/66; PULSE 83; TEMP 36.9
[2020-03-07] MEDS: 0.9% Normal Saline 1,000 ML 125 ML IV (03:48)
[2020-03-07] MEDS: Ceftriaxone 1 GM/50 ML BAG IV (07:30)
[2020-03-07 07:32] VITALS: TEMP 36.6
[2020-03-07 07:40] VITALS: BP 121/77; PULSE 91
[2020-03-07 07:42] VITALS: BMI 24.7
--- NOTE | 2020-03-07 07:52 | PCM.HP.OB ---
- Problem List (1) Pyelonephritis affecting in third trimester Status: Acute (2) Drug use affecting Status: Acute (3) Elevated blood pressure affecting in third trimester, antepartum Status: Acute (4) Flank pain Status: Acute (5) Insufficient care Status: Acute (6) Late care Status: Acute (7) Status: Acute (8) Rh negative state in antepartum period Status: Acute (9) Short interval between pregnancies affecting , antepartum Status: Acute (10) Supervision of high risk , antepartum Status: Acute (11) Tobacco use Status: Acute History Date of Admission: 03/07/20 Final RAFFY: 05/08/20 Final RAFFY Source: US >20 weeks Gestational age: 31 Weeks and 1 Days History of this : This is a 24 year-old, , at 31 weeks gestational age presents with acute right flank pain. She has a history of pyelonephritis with her previous . Urine is positive for nitrates and patient was febrile with a temp of 101 and white count of 20,000 she has been noncompliant with care and has only had one visit at 23 weeks of . 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 Allergies No Known Allergies Allergy (Verified 03/06/20 13:59) Home Medications: Home Medications No122/Iron/Folic Acid [ Multi Tablet] 1 each PO DAILY 03/20/19 Cephalexin [Keflex] 500 mg PO Q6 30 Days #100 cap 03/07/20 Ferrous Sulfate [Slow Fe] 142 mg PO BID #60 tablet.er 03/07/20 Smoking Status: Current some day smoker Alcohol: None Substance Use Type: Amphetamines, Marijuana Number of Fetus(es): 1 NST - FHR Rate Baby A Baseline: 140 Variability:: Moderate Accelerations:: 15 x 15 Decelerations:: None NST Reactive:: Yes FHR Category:: Category I Uterine Activity:: Irregular History Past Pregnancies: Past Pregnancies Delivery Date Name GA/ Weeks Outcome Route Wt Infant Sex Labor Length Anesthesia Delivery Location Provider FOB Review of Systems Constitutional: Reports: Chills, Fever. Denies: Malaise Eyes: Denies: Blurred vision, Vision Change HEENT: Denies: Head Aches, Visual Changes Cardiovascular: Denies: Chest Pain, Palpitations Respiratory: Denies: Cough, Shortness of Breath, Wheezing Gastrointestinal: Denies: Abdominal Pain, Diarrhea, Nausea, Vomiting Genitourinary: Reports: Dysuria, Frequency, Hematuria, Urgency Musculoskeletal: Denies: Joint Pain, Muscle pain Skin: Denies: Lesions, Rash Neurological: Denies: Blurred vision, Focal weakness, Headaches Psychiatric: Denies: Anxiety, Depression Endocrine: Denies: Heat/ Cold Intolerance Hematologic/ Lymphatic: Denies: Easy Bruising, Easy Bleeding Physical Exam Vitals: Vital Signs Temp Pulse Resp BP Pulse Ox 97.9 F 91 16 121/77 H 96 03/07/20 07:32 03/07/20 07:40 03/06/20 13:56 03/07/20 07:40 03/06/20 19:31 General: Alert, Cooperative, No apparent distress HEENT: Atraumatic, Normocephalic. Negative for: Thyromegaly, Lymphadenopathy Cardiovascular: Tachycardic Lungs: Normal air movement Abdomen: Soft, Non Tender, Gravid Neurological: Deep Tendon Reflexes 2+/4 and Symmetrical, Neuro grossly intact. Negative for: Clonus RN ORTHOPEDIC: Normal external genitalia. Negative for: Vulvar lesions Estimated gestational size: Appropriate for gestational size Presentation: Cephalic Assessment/Plan All Active Problems Flank pain (Acute) Elevated blood pressure affecting in third trimester, antepartum (Acute) Pyelonephritis affecting in third trimester (Acute) (Acute) Short interval between pregnancies affecting , antepartum (Acute) Supervision of high risk , antepartum (Acute) Insufficient care (Acute) Late care (Acute) Drug use affecting (Acute) Tobacco use (Acute) Rh negative state in antepartum period (Acute) 39 weeks gestation of (Resolved) Active labor at term (Resolved) Anemia affecting (Resolved) This is a 24-year-old G3, P2 at 32 weeks presents with acute pyelonephritis febrile, will give IV ceftriaxone. Plan discharge home on Keflex tomorrow And Keflex prophylaxis after completing 14-day course. Positive drug screen for amphetamines?discussed with patient and social media sr strategy manager consult ordered. Late care and she has only had one visit. Discussed with the patient that she needs to follow-up in the office from this within a week otherwise she could be discharged from the practice due to noncompliance. growth us- nl OBSV E&M: [id number] Initial observation care L3 [id number]: [id number] non-stress test Interp
[2020-03-07 07:55] LABS: Absolute Lymphocyte Count 1.05 X10^3/uL (0.83-4.51); Absolute Neutrophil Count 14.5 X10^3/uL (2.0-7.7); Basophil# 0.02 X10^3/uL; Basophil% 0.1 % (0-1); Hematocrit 29.5 % (37-47); Hemoglobin 9.6 g/dL (12.0-15.0); Lymphocyte # 1.05 X10^3/ul (4.0); Lymphocyte % 6.4 % (19-41); Mean Corp Hgb Conc 32.5 g/dL (32-36); Mean Corpuscular Volume 89.1 fL (81-99); Mean Platelet Vol. 10.3 fl (6.2-12.0); Monocyte# 0.59 X10^3/uL; Monocyte% 3.6 % (0-10); NRBC Flagged by Analyzer 0 % (0-5); Neutrophil # 14.46 X10^3/uL (2.7-7.7); Neutrophil % 88.6 % (47-70); Platelet Count 266 K/mm3 (150-450); RBC Distribution Width CV 12.7 % (11.6-14.6); RBC Distribution Width SD 40.9 fl (35.1-43.9); Red Blood Count 3.31 M/mm3 (4.2-5.4); White Blood Count 16.3 K/mm3 (4.4-11.0)
--- NOTE | 2020-03-07 07:56 | US_ITS ---
STUDY: OBSTETRICAL ULTRASOUND - BIOPHYSICAL PROFILE REASON FOR EXAM: Female, 24 years old LABOR LMP: August 02, 2019. PRIOR ULTRASOUND: Comparison is made with prior study dated March 06, 2020. TECHNIQUE: Transabdominal TECHNICAL QUALITY: Adequate. FINDINGS: There is a single intrauterine fetus. The fetus is in a cephalic presentation. There is demonstrated cardiac activity with a heart rate of 150 bpm. There is a normal amniotic fluid volume. The largest amniotic fluid pocket measures 3.3 cm. The amniotic fluid index (RAFY) is 9.8 cm. The placenta is posterior in location and is not low lying. There are Grade 1 placental changes. Age by LMP: 31 weeks, 1 days. RAFFY by LMP: May 08, 2020. age by prior US: 31 weeks, 6 days. RAFFY by prior US: May 03, 2020. Gender: Male BIOPHYSICAL PROFILE: Breathing Movements (FBM): 2 Gross Body Movements (GBM): 2 Tone (FT): 2 Amniotic Fluid Volume (AFV): 2 TOTAL SCORE: 8 / 8 US/Biophysical Prof W/O Non Stres IMPRESSION: Normal biophysical profile of 8/8. Electronically Signed: Emil Ignacio, at 9:39 EDT , Service support ,
[2020-03-07 08:43] LABS: Rubella IgG 64.6 IU/mL
[2020-03-07] MEDS: 0.9% Saline Lock 10 ML Syringe IV ×2 (09:00→09:33)
[2020-03-07 09:36] LABS: Chlamydia Trachomatis by PCR Negative (Negative); Neisserai gonorrhoeae by PCR Negative (Negative); Probe Check PASS; Sample Adequacy Control PASS; Specimen Processing Control PASS
[2020-03-07 10:20] LABS: HIV - WCH Non-Reactive (Nonreactive); Hepatitis B Surface Antigen Non-Reactive (Nonreactive); Hepatitis C Antibody Non-Reactive (Nonreactive)
--- NOTE | 2020-03-07 10:47 | PN.OBGYN_ITS ---
Subjective: Patient is feeling better with less flank pain no fevers. She denies any vaginal bleeding or loss of fluid admits good movement. - Physical Exam Vitals/I&O's: Vital Signs Temp Pulse Resp BP Pulse Ox 97.9 F 91 16 121/77 H 96 03/07/20 07:32 03/07/20 07:40 03/06/20 13:56 03/07/20 07:40 03/06/20 19:31 Oxygen Delivery Method Room Air Weight: 135 lb Body Mass Index (BMI) 24.7 Intake and Output for Last 24 Hours 03/05/20 03/06/20 03/07/20 23:59 23:59 23:59 Intake Total 2906.67 / 2906.67 1027.50 / 1027.50 Output Total 400 / 400 Balance 2906.67 / 2906.67 627.50 / 627.50 General: Alert, Oriented x3 Cardiovascular: Regular rate Abdomen: Soft, Non Tender, Gravid Laboratory Results 03/06/20 14:45: WBC 20.6 H, RBC 3.93 L, Hgb 11.1 L, Hct 34.5 L, MCV 87.8, MCH 28.2, MCHC 32.2, RDW Std Deviation 39.8, RDW Coeff of Dorcas 12.4, Plt Count 239, MPV 9.9, Immature Gran % (Auto) 1.000 H, Neut % (Auto) 81.4 H, Lymph % (Auto) 6.3 L, [place] % (Auto) 10.8 H, Eos % (Auto) 0.3, Baso % (Auto) 0.2, Absolute Neuts (auto) 16.8 H, Absolute Lymphs (auto) 1.30, Nucleated RBC % 0, Differential Comment SCANNED, Diff Path Review May , Platelet Estimate ADEQUATE, Plt Morphology Comment COMMENT, Polychromasia RARE 03/06/20 14:45: Sodium 132 L, Potassium 4.1, Chloride 101, Carbon Dioxide 25.0, Anion Gap 6, BUN 5 L, Creatinine 0.54 L, Estim Creat Clear Calc 127.05, Est GFR (MDRD) Af Amer 178, Est GFR (MDRD) Non-Af 147, BUN/Creatinine Ratio 9.3 L, Glucose 89, Calcium 9.2, Total Bilirubin 0.90, AST 16, ALT 9 L, Alkaline Phosphatase 172 H, Total Protein 7.0, Albumin 2.0 L, Globulin 5.0 H, Albumin/Globulin Ratio 0.4 L 03/06/20 15:15: Urine Color Yellow, Urine Clarity Sl. Cloudy, Urine pH 6.0, Ur Specific [place] 1.020, Urine Protein 100 H, Urine Glucose (UA) Normal, Urine Ketones 150 H, Urine Occult Blood 50 H, Urine Nitrite Positive H, Urine Bilirubin 1 H, Urine Urobilinogen 8 H, Ur Leukocyte Esterase 500 H, Urine RBC 0- 5 SEEN, Urine WBC 25-50 SEEN, Ur Squamous Epith Cells 0-5 SEEN, Urine Bacteria 2+, Urine Mucus 1+ 03/06/20 15:30: U Random Total Protein 225.9 H, Urine Creatinine 147.00, Protein/Creatinin Ratio 1537 H 03/06/20 15:30: Urine Opiates Screen NEGATIVE, Urine Methadone Screen NEGATIVE, Ur Barbiturates Screen NEGATIVE, Ur Phencyclidine Scrn NEGATIVE, Ur Amphetamines Screen POSITIVE H, U Methamphetamin-MDMA NEGATIVE, U Benzodiazepines Scrn NEGATIVE, Urine Cocaine Screen NEGATIVE, U Cannabinoids Screen POSITIVE H, Ur Drug Screen Comment 03/06/20 15:30: U Amphetamines Confirm Pending 03/06/20 16:20: PT 13.5, INR 1.1, APTT 29.9 03/07/20 07:30: WBC 16.3 H, RBC 3.31 L, Hgb 9.6 L, Hct 29.5 L, MCV 89.1, MCH 29.0, MCHC 32.5, RDW Std Deviation 40.9, RDW Coeff of Dorcas 12.7, Plt Count 266, MPV 10.3, Immature Gran % (Auto) 1.300 H, Neut % (Auto) 88.6 H, Lymph % (Auto) 6.4 L, [place] % (Auto) 3.6, Eos % (Auto) 0.0, Baso % (Auto) 0.1, Absolute Neuts (auto) 14.5 H, Absolute Lymphs (auto) 1.05, Nucleated RBC % 0 03/07/20 07:30: Rubella IgG Antibody 64.6 03/07/20 07:30: RPR Pending 03/07/20 07:30: Blood Type B NEGATIVE, Antibody Screen NEGATIVE 03/07/20 07:30: Hep Bs Antigen Non-Reactive, Hepatitis C Antibody Non-Reactive, HIV 1&2 Antibody Non-Reactive 03/07/20 07:30: Chlam trachomat DNA PCR Negative, N.gonorrhoeae DNA (PCR) Negative Current Medications Acetaminophen (Tylenol) 1,000 mg PO Q6H PRN ADRIAN Last Admin: 03/06/20 18:48 Dose: 1,000 mg Documented by: Al Hydroxide/Mg Hydroxide (Mylanta Ii) 15 - 30 ml PO Q6H PRN PRN PRN Reason: HEARTBURN OR INDIGESTION Last Admin: 03/06/20 21:26 Dose: 15 ml Documented by: Hydromorphone HCl (Dilaudid Inj) 0.5 mg IV X1 PRN PRN Reason: Pain Score 6-10/10 Hydromorphone HCl (Dilaudid Inj) 1 mg IV X1 PRN PRN Reason: Pain Score 6-10/10 Ceftriaxone Sodium (Rocephin) 1 gm in 50 mls @ 100 mls/hr IV Q12H [facility] Last Admin: 03/07/20 07:30 Dose: 100 mls/hr Documented by: Sodium Chloride () 1,000 mls @ 125 mls/hr IV .Q8H [facility] Last Infusion: 03/07/20 06:30 Dose: 125 mls/hr Documented by: Ondansetron HCl (Zofran) 4 mg IV Q4H PRN PRN PRN Reason: NAUSEA Sodium Chloride () 10 ml IV PRN PRN PRN Reason: flush Last Admin: 03/07/20 09:33 Dose: 10 ml Documented by: Medical Necessity - Tobacco Use Smoking Status: Current some day smoker Assessment/Plan All Active Problems Flank pain (Acute) Elevated blood pressure affecting in third trimester, antepartum (Acute) (Acute) Short interval between pregnancies affecting , antepartum (Acute) Supervision of high risk , antepartum (Acute) Insufficient care (Acute) Late care (Acute) Drug use affecting (Acute) Tobacco use (Acute) Rh negative state in antepartum period (Acute) 39 weeks gestation of (Resolved) Active labor at term (Resolved) Anemia affecting (Resolved) 24-year-old G3, P2 at 32 weeks presents with acute pyelonephritis Afebrile x24 hours status post 24 hours of IV ceftriaxone. Plan discharge home on Keflex. And Keflex prophylaxis after completing 14-day course. Positive drug screen for amphetamines?discussed with patient and social insurance administrator consult ordered. Late care and she has only had one visit. Discussed with the patient that she needs to follow-up in the office from this within a week otherwise she could be discharged from the practice due to noncompliance. growth us- nl heart rate variable overnight- 10/10 BPP reassuring status overall Essential Procedure Criteria Procedure Essential: Yes Criteria Note: On 01/25/2020 the [facility] ([facility]) Public Order signed by [facility] Director Arlette Villegas M.D., regarding the Management of Non- Essential Surgeries and Procedures for the purpose of preserving Personal Protective Equipment (PPE) and critical hospital capacity and resources within [place] went into effect as of 01/26/2020 at 5:00PM. According to the [facility] Public Order: This action will remain in full force and effect until the State of Emergency declared by the Governor no longer exists or the Director of the [facility] rescinds or modifies this Order.. This [facility] order stated all non-essential or elective surgeries and procedures that utilize PPE should be delayed unless there is undue risk to the current or future health of a patient. After reviewing the aforementioned [facility] Public Order and the patients clinical case, I have determined that the scheduled procedure meets the criteria to go forward. Risk to Patient if Procedure Delayed: Threat to patient's life if surgery or procedure is delayed Multi Select Codes - Visit Charges Observation E&M Codin Observation care discharge
--- NOTE | 2020-03-07 11:31 | CASEMGMT ---
Addendum entered and electronically signed by Maria Victoria Santillan 03/08/20 10:17: Clarification: minor child, Juan, was born in 2019, not in 2020 as orginally documente in error. adam Original Note: Social Work Labor and Delivery Unit Patient Address: [address] [place] [address], [place] [address] (parents address) Patient Date of Referral: 03/07/2020 Time of Referral: 05 Referred By: Dr. Costello Date of Intervention: 03/07/2020 Time of Intervention: 1000 -1100 Reason for Referral: limited/late cared, positive tox screen. History obtained from: medical records and mother of baby (MOB) Samara Rivera this scenario writer is familiar with this patient/MOB from prior deliveries at [facility] Household composition: MOB reports to live with her parents in [place] but that when baby is born place to live with friends. Patient's parent/guardian status: Father of baby (FOB) is reported as a Hank Betancur, who is the father to the MOB's older children. It is reported the older children currently live with Hank. Uncertain about actual custody specifics of the children. Hank's address is listed as [address] [place] [address]. Minor children include: Tila Betancur (born 11.25.2016) and Juan Betancur (born 03.20.2020). MOB reports she is able to see and visit the kids, but has not been able to do so lately due to COVID-19. Medical History: ОЛЕГ is currently and presented to the ED for flank pain, decision made to bring MOB to labor and delivery to rule out pre-eclampsia. MOB with late care this with notation in record for a 23 week ultrasound confirmation in January. Estimated due date is 05.08.2020. ОЛЕГ is 31 weeks at this time. Closely spaced pregnancies with last delivery in March of 2019. Educational Status: High school. Financial Status: Unknown Supplies: Reports to have some things started but does need a sleep space and car seat for the baby. Transportation: Reports to have own transportation. Programs/Agencies Involved: [facility] through [facility]. No other agency involvement reported at this time. Children Services/Legal Issues: MOB does have history of [facility] after the of first child. Infant exposure to marijuana. History of [facility] after of 2nd child related to marijuana and methamphetamine exposure. Behavioral Health Issues: Mental Health History: MOB denies any mental health issues, denies any history of suicidal ideation/intent/attempts. Denies any mood issues. Substance Use History: MOB with history of marijuana and methamphetamine use. Per conversation with RN this date, MOB did admit to methamphetamine and marijuana use this . Family History: Not discussed this date. Drug Screens: Maternal screen positive this admission on 03.06.2020 for marijuana and amphetamines. Amphetamines are being sent out for confirmation testing. Family/Social Stressors and/or concerns: Closely spaced , MOB indicating that still needs to get some baby supplies, reporting intent to take the baby to a friends home after , untreated substance use issues though MOB does not identify substance use as a concern at this time. Support Systems: Reports to live with parents. ASSESSMENT: Presented to MOB's room and introduced to self. Asked MOB if okay to talk and MOB stated Do I have a choice? Let MOB know that MOB could technically refuse to talk to this scenario writer. MOB continued to lay down and would crack eyes open to talk to this scenario writer. MOB guarded, not expansive on answers, but did cooperate providing basic answers. MOB declines any type of referral for substance use treatment or support, making statement that can quit on own. This scenario writer explored whether MOB is feeling motivated to make changes at this time, or where MOB sees self in regards to continued substance use. MOB reports to feel motivated to cease use, as MOB continued to keep eyes closed. MOB denies being concerned about use or denies need extra support though did agree to take some resource information. Explored whether MOB has basis things to live such as housing and food. MOB reports to have these things, but reports may be helpful to have food resources. This scenario writer left room and returned with resources for home going. Did encourage MOB to use resources being provided this date and let MOB know that staff want to be supportive to MOB and provide resources and referrals as MOB is willing to accept. Provided MOB with [facility] Free Card for food pantries, meals service, mental health ans substance use treatment options. Provided flyer on cribs for kids program and where to turn in the community for a free car seat. Provided emergency crisis lines that MOB can call as well. Information on [facility]. MOB preferred [facility] rather than [facility]. MOB knows about [facility] but does not have currently. MOB denied any other needs for home going . Noted MOB did wake up, open eyes immediately and become more spontaneous in conversation when RN came in to tell MOB that MOB can be discharged today. Safe Plan of Care for infant related to substance use: Reports plan to cease further drug use. PLAN: MOB will be discharged home this date with resources provided for basic needs of self as well as things to get started to prepare for the baby. MOB declines any type of referrals to assist with behavioral health concerns. Will be calling [facility] due to maternal drug screens, concerns for substance exposed , though no case will likely be opened due to the baby not yet delivering and the older children living with their father. For safety of baby at delivery, feel this exposure needs to be noted and filed in case MOB delivers elsewhere. No other services requested or indicated. -RAS Coronado, CMS EXPERT
[2020-03-07 12:22] LABS: Pathologist Review Reviewed
--- NOTE | 2020-03-08 10:05 | CASEMGMT ---
Social Work Labor and Delivery Call to [facility] at [phone]. Spoke with Denise Carl in intake regarding concern for substance exposed in utero. Report this as an information and referral as baby is not yet born, but this sheet writer with concern for baby's safety should MOB deliver elsewhere, and in light of mother of baby having history of children services due to substance issue with two prior deliveries. Other concerns reported: late/limited care, lack of resources yet for baby, and uncertain housing situation due to MOB stating to live with her parents but planning to take baby to another home after baby is born. No other services requested or indicate. -AAKASH Coronado, GAME MODERATOR
[2020-03-09 01:34] LABS: Rapid Plasmin Reagin (RPR) NONREACTIVE (NONREACTIVE)
[2020-03-09 20:07] LABS: Amphetamine Positive (.); AmphetamineGC/MS Conf 3188 ng/mL (Cutoff=500); Methamphetamines Positive (.)
[2020-03-09 20:10] LABS: Amphetamine Ur Confirm Positive (.)
== END 2020-03-07 11:20 | disposition home or self-care (01) ==
LOC: ED 15:02 → OBT 15:03 → WP 03-07 08:13
PROVIDERS: Emergency Provider Emergency Medicine; Visit Provider Obstetrics & Gynecology
DX: O23.03 Infections of kidney in pregnancy, third trimester (principal); O26.893 Other specified pregnancy related conditions, third trimester; R03.0 Elevated blood-pressure reading, without diagnosis of hypertension; R10.9 Unspecified abdominal pain; O99.333 Smoking (tobacco) complicating pregnancy, third trimester; F17.200 Nicotine dependence, unspecified, uncomplicated; O99.323 Drug use complicating pregnancy, third trimester; F15.90 Other stimulant use, unspecified, uncomplicated; Z3A.31 31 weeks gestation of pregnancy
CPT/HCPCS: 96361 ×2; 96365; 96366; 36415; 59025; 59050; 76770; 76816; 76819; 80053; 80307; 81001; 82570; 84156; 85025; 85610; 85730; 86592; 86703; 86762; 86803; 86850; 86900; 86901; 87340; 87491; 87591; 96372; 99218; 99282; J7030; J7120; A4216; G0378; J0702

== ENCOUNTER 2020-03-07 19:31 | Outpatient (CLI) | payer MEDICAID, SELFPAY ==
[2020-03-07 07:42] VITALS: BMI 24.7
[2020-03-07 19:44] VITALS: BMI 24.2
[2020-03-07] MEDS: Betamethasone/Betamethasone 30 MG/5 ML Vial 12 MG IM (20:08)
--- NOTE | 2020-06-06 07:18 | OB.TRI.PN ---
Progress Notes Date of Service: 03/07/20 Progress Note: celestone shot given for prematurity, pyelonephritis
== END 2020-03-07 20:10 | disposition home or self-care (01) ==
LOC: WPOUT 19:38 → OBT 19:38
PROVIDERS: Visit Provider Obstetrics & Gynecology
DX: O23.00 Infections of kidney in pregnancy, unspecified trimester (principal); Z3A.00 Weeks of gestation of pregnancy not specified
CPT/HCPCS: 96372; 99218; G0378; J0702

== ENCOUNTER 2020-04-25 01:31 | Inpatient (IN) | payer MEDICAID, SELFPAY ==
[2020-04-25] VITALS (35 sets, daily range): BP systolic 133–182; BP diastolic 65–100; PULSE 62–104; RESP 16–26; TEMP 36.7–37.1; O2SAT 100; BMI 23.6
[2020-04-25] MEDS: Oxytocin 30 units/NS 500 ml 30 UNITS/500 ML IV.SOLN 334 UNITS IV (01:53)
[2020-04-25] MEDS: fentaNYL 100 MCG/2 ML Ampul IV (02:01)
[2020-04-25] MEDS: Levonorgestrel IUD (Liletta) 1 EACH IY (02:04)
[2020-04-25 02:15] LABS: Absolute Lymphocyte Count 2.28 X10^3/uL (0.83-4.51); Absolute Neutrophil Count 10.8 X10^3/uL (2.0-7.7); Basophil# 0.04 X10^3/uL; Basophil% 0.3 % (0-1); Eosinophil# 0.08 X10^3/uL; Eosinophils% 0.6 % (0-5); Hematocrit 32.5 % (37-47); Lymphocyte # 2.28 X10^3/ul (4.0); Lymphocyte % 15.8 % (19-41); Mean Corp Hgb Conc 30.8 g/dL (32-36); Mean Corpuscular Volume 81.3 fL (81-99); Mean Platelet Vol. 11.6 fl (6.2-12.0); Monocyte% 8.3 % (0-10); NRBC Flagged by Analyzer 0 % (0-5); Neutrophil # 10.78 X10^3/uL (2.7-7.7); Neutrophil % 74.4 % (47-70); Platelet Count 239 K/mm3 (150-450); RBC Distribution Width CV 14.9 % (11.6-14.6); RBC Distribution Width SD 43.2 fl (35.1-43.9); White Blood Count 14.5 K/mm3 (4.4-11.0)
--- NOTE | 2020-04-25 02:20 | HP.PCM_ITS ---
- Problem List (1) Insufficient care Status: Acute Comment: no visits in the office, only dating us at 21 weeks and pyelonephritis admission at 32 weeks. (2) Late care Status: Acute (3) Drug use affecting Status: Acute (4) Tobacco use Status: Acute (5) Rh negative state in antepartum period Status: Acute (6) Supervision of high risk , antepartum Status: Acute (7) Short interval between pregnancies affecting , antepartum Status: Acute (8) Status: Acute (9) Pyelonephritis affecting in third trimester Status: Acute History Date of Admission: 03/07/20 Final RAFFY: 05/08/20 Final RAFFY Source: US >20 weeks Gestational age: 38 Weeks and 1 Days History of this : This is a 24 year-old, at 38 weeks gestational age presents in active labor and delivers precipitously. The only care patient has received this due to noncompliance was a dating ultrasound at 21 to 22 weeks and a 32-week admission for pyelonephritis when she got all of her new OB labs drawn and was given steroids for prematurity. She has a history of methamphetamine use and says she last used yesterday she denies any vaginal bleeding or loss of fluid admits good movement. Her last delivery was March of last year.. Medical History: Medical History (Last Updated 04/25/20 @ 02:[address] 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 Short interval between pregnancies Labs: Mom's Labs & Results 04/25/20 04/25/20 04/25/20 01:40 01:40 01:40 WBC 14.5 H RBC 4.00 L Hgb 10.0 L Hct 32.5 L MCV 81.3 MCH 25.0 L MCHC 30.8 L RDW Std Deviation 43.2 RDW Coeff of Dorcas 14.9 H Plt Count 239 MPV 11.6 Immature Gran % (Auto) 0.600 Neut % (Auto) 74.4 H Lymph % (Auto) 15.8 L [place] % (Auto) 8.3 Eos % (Auto) 0.6 Baso % (Auto) 0.3 Absolute Neuts (auto) 10.8 H Absolute Lymphs (auto) 2.28 Nucleated RBC % 0 Urine Opiates Screen Pending Urine Methadone Screen Pending Ur Barbiturates Screen Pending Ur Phencyclidine Scrn Pending Ur Amphetamines Screen Pending U Methamphetamin-MDMA Pending U Benzodiazepines Scrn Pending Urine Cocaine Screen Pending U Cannabinoids Screen Pending Ur Drug Screen Comment Blood Type Pending Antibody Screen Pending Social History Alleged father Hank Hx Smoking Yes Smoking Status Current some day smoker Expected Delivery Method: Spontaneous Vaginal Review of Systems Constitutional: Denies: Fever, Malaise Eyes: Denies: Blurred vision, Vision Change HEENT: Denies: Head Aches, Visual Changes Cardiovascular: Denies: Chest Pain, Palpitations Respiratory: Denies: Cough, Shortness of Breath, Wheezing Gastrointestinal: Reports: Abdominal Pain. Denies: Diarrhea, Nausea, Vomiting Genitourinary: Denies: Dysuria, Hematuria Musculoskeletal: Denies: Joint Pain, Muscle pain Skin: Denies: Lesions, Rash Neurological: Denies: Blurred vision, Focal weakness, Headaches Psychiatric: Denies: Anxiety, Depression Endocrine: Denies: Heat/ Cold Intolerance Hematologic/ Lymphatic: Denies: Easy Bruising, Easy Bleeding Physical Exam Vitals: Vital Signs Pulse BP Pulse Ox 87 149/85 H 100 04/25/20 02:11 04/25/20 02:11 04/25/20 01:39 General: Alert HEENT: Atraumatic, Normocephalic. Negative for: Thyromegaly, Lymphadenopathy Cardiovascular: Regular rate Lungs: Normal air movement Abdomen: Soft, Non Tender, Gravid - Small for gestational age Extremities:: Other - Multiple excoriations over lower and upper extremities Neurological: Neuro grossly intact. 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 Negative for: Vulvar lesions Estimated gestational size: Small for gestational age Presentation: Cephalic Cervix Dilation (cm): 9 Station: 0 Effacement (%): 100 Assessment/Plan All Active Problems (Last Updated 04/25/20 @ 02:[address] Radha Costello MD) Insufficient care (Acute) Late care (Acute) Drug use affecting (Acute) Tobacco use (Acute) Rh negative state in antepartum period (Acute) Supervision of high risk , antepartum (Acute) Short interval between pregnancies affecting , antepartum (Acute) (Acute) Flank pain (Acute) Elevated blood pressure affecting in third trimester, antepartum (Acute) Pyelonephritis affecting in third trimester (Acute) 39 weeks gestation of (Resolved) Active labor at term (Resolved) Anemia affecting (Resolved) This is a 24 year-old, G 3P2 at 38 weeks gestational age presents in active labor with precipitous delivery Late and insufficient care. No visits in the office but new OB labs were drawn and admission for pyelonephritis. Recommend social work consult and drug screen positive for methamphetamines and marijuana. IUD placed at the time of delivery. Title 19 form will be signed during admission and will schedule interval tubal ligation in 4 weeks.
--- NOTE | 2020-04-25 02:28 | PCM.OPRPT ---
Problem List (1) Insufficient care Status: Acute Comment: no visits in the office, only dating us at 21 weeks and pyelonephritis admission at 32 weeks. (2) Late care Status: Acute (3) Drug use affecting Status: Acute (4) Tobacco use Status: Acute (5) Rh negative state in antepartum period Status: Acute (6) Supervision of high risk , antepartum Status: Acute (7) Short interval between pregnancies affecting , antepartum Status: Acute (8) Status: Acute (9) Pyelonephritis affecting in third trimester Status: Acute Multi Select Codes - Urinary/Genital Urinary/Genital CPT Codes: 94744 Insert IUD, 47356 Vaginal Delivery+ Care([facility])
[2020-04-25 02:33] LABS: Amphetamine Urine VISTA POSITIVE (<1000 ng/mL); Barbiturate Urine VISTA NEGATIVE (< 200 ng/mL); Benzodiazepine Urine VISTA NEGATIVE (< 200 ng/mL); Cocaine Urine VISTA NEGATIVE (< 300 ng/mL); Ecstacy Urine VISTA NEGATIVE (< 500 ng/mL); Methadone Urine VISTA NEGATIVE (< 300 ng/mL); PCP Urine VISTA NEGATIVE (< 25 ng/mL); THC Urine VISTA POSITIVE (< 50 ng/mL); Vista UDS pH Range 8
--- NOTE | 2020-04-25 02:46 | PLAC_PTH ---
PATIENT: KENDAL TEJADA LOC: [facility] U#:[id number] AGE/SX: 24/F ROOM: WP015 RE04/25/[address]: Dr. Radha Costello MD : 1995 BED: 1 DIS: 04/27/2020 SPEC #: [id number] RECD: 04/25/20 05:17 STATUS: DARWIN FRANCO #: [id number] SUNDAY: 04/25/20 02:[address]: Radha Costello DEPT: SURGICAL PATHOLOGY RECD BY: Melvin Anand ENTERED: 04/25/20 09:07 SP TYPE: PLACENTA OTHR DR: No Primary Care Phys Tissues: Placenta, NOS Procedures: Surgery Specimen Level V HEADER OPERATION: Vaginal delivery PRE-OP DIAGNOSIS: Abruption TISSUE SUBMITTED: Placenta MICROSCOPIC DIAGNOSIS Placenta: Placental disc - third trimester placenta (714 gm). - Acute vasculitis of subamniotic blood vessels. Membranes - moderate acute chorioamnionitis. Umbilical cord - three blood vessels and moderate acute funisitis. MEENA:yuly 04/27/20 MICROSCOPIC DESCRIPTION Slides are reviewed. GROSS DESCRIPTION SPECIMEN: PLACENTA / CLINICAL INFORMATION: A. Weight: 3.427 kg B. Gestational Age: 38 weeks C. Sex: Male PLACENTAL WEIGHT (POST FIXATION): 714 gm PLACENTAL DIMENSIONS: 19 x 17 x 4 cm PLACENTAL SHAPE: Usual ovoid PLACENTAL WEIGHT FOR GESTATIONAL AGE: Over 99th percentile MEMBRANES - Present A. Insertion: Marginal B. Site of rupture from edge: At edge of placental disc C. Color of membrane: Arango-barlow D. Abnormalities: None UMBILICAL CORD - Present A. Color: Arango-barlow B. Insertion: Central C. Length: 33 cm D. Diameter: Up to 1.5 cm E. Number of vessels: Three F. Abnormalities: None PLACENTAL DISC - Present A. Color of surface: Arango-barlow B. surface abnormalities: None C. Maternal cotyledons: Intact with minimal tears D. Attached retro placental clot: No clot E. Cut surface: Dark red and spongy F. Lesions: None G. Separate clot: Multiple blood clots are noted weighing 18 gm and measuring in aggregate 11 x 3 x 2?cm. SECTIONS SUBMITTED: 1. Membrane roll 2. Cord, maternal end 3. Cord, end 4. Placental disc, and maternal surfaces 5. Placental disc, and maternal surfaces 6. Placental disc, and maternal surfaces SJ:yuly 04/26/20 TC:2 CPT: 54461
[2020-04-25] MEDS: Acetaminophen 500 MG Tablet 1000 MG PO (03:21)
[2020-04-25 05:16] LABS: ALB/GLOB Ratio 0.5 RATIO (0.9-2.4); AST(SGOT) 23 U/L (15-37); Alanine Aminotransfer ALT/SGPT 14 U/L (13-56); Alkaline Phosphatase 147 U/L (45-117); Anion Gap 8 (5-15); BUN 9 mg/dL (7-18); BUN/Creat Ratio 16.2 RATIO (10-20); Calcium,Total 8.7 mg/dL (8.5-10.1); Chloride 104 mmol/L (98-107); Creatinine, Serum 0.56 mg/dL (0.55-1.02); EST Glomerular Filtration Rate 141 mL/min (>60); Est Glom Filt Rate - Afr Amer 171 mL/min (>60); Estimated Creatinine Clearance 122.52 ml/min; Glucose 94 mg/dL (74-106); Potassium 4.1 mmol/L (3.5-5.1); Sodium Level 136 mmol/L (136-145)
[2020-04-25 06:21] LABS: Pathology Specimen OB SEE PATHOLOGY REPORT
[2020-04-25] MEDS: Naproxen 250 MG Tablet 500 MG PO ×2 (08:33→16:58)
[2020-04-25] MEDS: Labetalol 100 MG Tablet PO ×2 (08:33→22:31)
[2020-04-25 09:16] LABS: ALB/GLOB Ratio 0.5 RATIO (0.9-2.4); AST(SGOT) 22 U/L (15-37); Alanine Aminotransfer ALT/SGPT 11 U/L (13-56); Albumin, Serum 1.9 g/dL (3.2-5.0); Alkaline Phosphatase 143 U/L (45-117); Anion Gap 10 (5-15); BUN 9 mg/dL (7-18); BUN/Creat Ratio 14.5 RATIO (10-20); Chloride 105 mmol/L (98-107); Creatinine, Serum 0.62 mg/dL (0.55-1.02); EST Glomerular Filtration Rate 124 mL/min (>60); Est Glom Filt Rate - Afr Amer 150 mL/min (>60); Estimated Creatinine Clearance 110.66 ml/min; Globulin 3.8 g/dL (2.2-4.2); Glucose 147 mg/dL (74-106); Potassium 3.8 mmol/L (3.5-5.1); Protein, Total 5.7 g/dL (6.4-8.2); Sodium Level 139 mmol/L (136-145)
--- NOTE | 2020-04-25 13:10 | CASEMGMT ---
Social Work Assessment Labor and Delivery Unit Date of Referral: 04/25/2020 Time of Referral: 08:45am Referred By: Dr. Radha Costello Date of Intervention: 04/25/2020 Time of Intervention: 1:10-2:14pm. Reason for Referral: Late/limited care, Mother of Baby (MOB), Samara Rivera with positive tox screen during for Meth/THC, infant with positive urine tox screen for amphetamines. History obtained from: MOB, Chart, Nursing staff. Nursing staff stating that MOB has difficulty with feeding infant bottle and nursing staff or Hank (Father of baby) have done all feedings. Household composition: MOB reports to currently be living with MOB?s mother, Haritha Klein and stepfather, Michael Guevara at [address] [place] [address]. MOB confirms best contact number for MOB as: [phone]. MOB unsure if plan will be to return to parents? home with or to Father of baby (FOB), Hank Betancur?s home. MOB is planning on having a tubal completed and had an IUD placed at delivery. Patient's parent/guardian status: MOB and FOB have been ?together? since 2011. MOB states to not currently be living with Hank due to Hank not being in support of MOB?s substance abuse/use. This is third infant for MOB and FOB. This infant to be named Danny Betancur. MOB reports to have two other children, Juan Betancur (03/20/2019 age 13 months) and Tila Betancur (11/15/2016 age 3). FOB currently has custody of both Juan and Tila. MOB states to have had custody of own children for ?a little? after each was born but to no longer have custody. MOB states to visit children at FOB?s home 2-3 times a week. All three children share paternity. This social security assessor broached topic of dynamics of MOB and FOB?s relationship. MOB states to feel safe with FOB but that ?we have our issues.? MOB voices no concerns with children being with FOB. Medical History: MOB with history of prior to delivering this infant. MOB had vaginal delivery at 38 weeks. MOB noted to have no care. MOB with a scheduled ultrasound at weeks 21-22 and had a hospital admission for pyelonephritis at 32 weeks, and this was the only medical care that MOB appears to have received during . MOB arrived at hospital for delivery at 8-9 cm dilated with MOB?s mother, Haritha. born on 04/25/2020 with weight of 3427g and Apgars of 7 at 1min and 9 at 5min. Educational Status: MOB reports to have a high school diploma and no concerns for comprehension or understanding. Financial Status: MOB currently unemployed and when asked about financial concerns, states ?It will be better now that the baby is born.? MOB states ?He was hard on my body.? FOB currently works full-time and when FOB is at work other children are at FOB?s grandparents. Infant Supplies: MOB states to have a crib and car seat for infant. MOB states that FOB ?just put the car seat in his truck.? MOB denies any concerns with supplies for and to have what is needed. MOB is planning to bottle feed and states to have needed supplies. Childcare/Caregiver(s): MOB plans to be primary caregiver for infant. Transportation: MOB states to have a car and no issues with transportation. Programs/Agencies Involved: MOB denies any active community resources. Children Services/Legal Issues: History of [facility] services with Tila Betancur due to positive THC in . [facility] Services involvement with Juan Betancur due to positive Meth and THC in . MOB states that there are no open cases currently. MOB states to have had a ?disorderly conduct? 6 months ago. This social security assessor inquires if the disorderly conduct charge had anything to do with Hank. MOB paused for a bit and then states ?Yes, but it was no big deal.? MOB did not elaborate further on this. Behavioral Health Issues: Mental Health History: MOB denies any mental health history of history of depression. MOB denies any suicidal thought/plan/intent. Substance Use History: MOB is open with this social security assessor when talking about substance abuse. MOB states that last use of Meth was on Friday (04/23/2020) and last use of THC was ?weeks ago.? MOB states to smoke one pack of cigarettes in a two-day period. MOB denies any other substance abuse use. MOB states to have been using Meth for the past 4 years. MOB states to have used substance abuse resources in the past but no current involvement. Family History: MOB denies any substance abuse/use for FOB or MOB?s family. MOB denies any known mental health history in MOB?s family or FOB?s. Maternal and Infant Drug Screens: MOB with positive drug screen for THC and Meth on 03/06/2020 and 04/25/2020. with positive urine tox for Amphetamines. PHQ9: MOB did not trigger PHQ-9. MOB presenting with positive affect. Family/Social Stressors: MOB denies any current stressors or issues. Support Systems: MOB states to have support from Hank, MOB?s parents and MOB?s grandpa. Depression and Anxiety/Shaken Baby/Safe Sleeping: MOB educated on depression and anxiety, shaken baby and safe sleeping. MOB able to respond with appropriate ways to manage if feeling overwhelmed and safe ways for to sleep. ASSESSMENT: Met with MOB and in room. Introduced self as well as social security assessor role. MOB is agreeable to speak with this social security assessor. resting in MOB?s arms during assessment. MOB does not appear to be able to stay still during assessment and is fidgety (moving legs often and readjusting often) along with picking at skin often. This social security assessor inquiring how MOB is feeling and how much Meth MOB was using on a regular basis. MOB states ?I have really cut back.? MOB admits to Meth use for this past Friday and to have been ?clean? for a month prior to that. This social security assessor broached topic of substance abuse support. MOB declines any services and states ?no one can make me get clean.? MOB is voicing plan to stop using Meth and THC. MOB states to currently feel ?fine.? MOB able to maintain a safe manor of holding infant while speaking with this social security assessor. MOB states to have a connection with infant and gazes into infant eyes often stating ?aw? when would make a noise. At one-point smiled and MOB was excited to show this social security assessor. This social security assessor broached MOB?s plan for and self. MOB states to ?have to talk to Hank.? MOB is not sure if MOB and will discharge to Hank?s or MOB?s moms? home. MOB states that Hank will be back in this afternoon after Hank is off work around 4:30pm. This social security assessor establishing plan to come back and meet with MOB and Hank at 5:15pm this evening to follow up on MOB?s plan for . This social security assessor broached topic of MOB feeding infant. MOB confirming to have not fed infant yet stating ?he (infant) doesn?t like the bottle.? MOB confirming that FOB did feed bottle over lunch. MOB believes that infant needs another type of formula. This social security assessor did update nursing staff on this information. This social security assessor broached topic of support person for MOB. MOB states that MOB?s mother was present at infant delivery and Hank is currently at work. Per nursing staff MOB has not had a support person the majority of stay. Safe Plan of Care for related to substance use: MOB plans to no longer use Meth and THC. MOB states plan to not smoke tobacco in the home or around infant and aware of risk for SIDS. This social security assessor broaching topic of MOB?s plan if MOB would decide to return to using Meth/THC. MOB states plan to ensure that infant is with a trusted adult and MOB would not use in front of infant. Telephone call to [facility], Malka Villalta. Updated Malka on late/no care, positive tox screen for and MOB, MOB not having custody of pervious two infants, concerns for MOB meeting nutritional needs, disorderly conduct 6 months ago for MOB and unclear discharge plan. This social security assessor also reported MOB?s openness about substance abuse and voicing plan to stop use. Also reported MOB stating to have a connection with infant and MOB?s interaction with infant as observed by this social security assessor. This social security assessor also reports that MOB states to have all needed supplies for infant. Malka aware that plan is for this social security assessor to meet with MOB and FOB this evening to clarify discharge plan. As infant is currently in a safe place with supervision plan is for CS to be called tomorrow morning by social work to update on MOB?s plan for discharge. PLAN: Undetermined Social Work to continue to follow up with. Chucho Nguyễn GLASS INSERTER, MIROSLAVA
[2020-04-25] MEDS: Senna/Docusate Sodium 1 Tablet PO (16:58)
--- NOTE | 2020-04-25 17:15 | CASEMGMT ---
Social Work Met with MOB and REGB, Hank in room. Introduced self to Hank. Hank sitting on couch holding infant and gazing into eyes. Hank finger tipping infant face often. Hank states to have a connection with infant and plans for to discharge to home with Hank. Hank states that MOB is not welcome in Hank's home as it causes more problems with children services. MOB is laying in bed and does not give any verbal response to Hank's comments. This social professionals inquiring about MOB's thoughts, MOB shrugging shoulders and is not making eye contact. Hank returns to tending to and MOB continues to lay in bed without sitting up or noting plan to interact with this social professionals or Hank. Hank then states to not want to discharge to MOB's mother's home as everything is wrong there. This social professionals asking Hank to clarify everything. Hank states that is for her (MOB) to disclose. MOB continues to rest in bed with no physical or verbal response to conversation between this social professionals and Hank. This social professionals inquiring if MOB has anything to add to the conversation, MOB does not initiate conversation. This social professionals noting with Hank and MOB that there is some conversations that appear to need to be had. This social professionals inquiring if MOB feels safe with Hank in room, MOB states I feel safe. Hank did not raise voice or become aggressive towards MOB during above conversation. Hank continues to hold and states to have all needed supplies for in the home. This social professionals then leaving the room to allow MOB and Hank to discuss discharge plan for . Updated nursing staff. Nursing staff plan to check in on patient in the next 5-10min. Chucho AWAD, MIROSLAVA
--- NOTE | 2020-04-25 18:30 | CASEMGMT ---
Social Work Telephone call from [facility]. Hank AYALA asking to speak with this social service liaison. This social service liaison meeting with Hank in waiting room. Hank states concerns of MOB bringing infant to MOB's parents home. Hank states it is dirty and full of drugs. Hank states that there are dogs everywhere and no toilet. Hank states I will not have my son go there. This social service liaison educating Hank that currently MOB has custody of infant unless determined otherwise by children services. Hank voices to be aware of this. Hank in calm and respectful to this social service liaison and MOB during this conversation. This social service liaison able to protect MOB's confidentiality and listened to Hank's concerns. Hank then leaving the unit. Chucho AWAD, MIROSLAVA
--- NOTE | 2020-04-25 19:15 | CASEMGMT ---
Addendum entered by Jennifer Nguyễn 04/25/20 21:07: This delinquency prevention social worker broached topic of ОЛЕГ's mom's home. MOB states it is not as clean as Hank wants it to be. MOB states that MOB's mother has 6 dogs in the home and that the home is unkept but that MOB's room is clean and this is where will be staying. MOB denies any concerns for running water or electricity in the home. MOB also denies any family members abusing substances in the home. Original Note: Social Work This delinquency prevention social worker meeting with MOB in room to provide support. MOB appears to be breathing heavy. MOB states to have just walked back in from going outside to smoke. MOB able to control breathing and calm self. MOB states to be nervous about tomorrow. MOB states plan to bring infant to MOB's moms' home. This delinquency prevention social worker inquiring if MOB has needed supplies. MOB states no, Hank has it all. MOB states to have a few baby outfits and diapers but no crib or car seat. This delinquency prevention social worker inquiring if MOB is able to afford a crib/car seat. MOB states to not be sure how MOB will get supplies but that ОЛЕГ's grandpa will help me. MOB aware that supplies will need to be obtained in order to be able to have a safe discharge plan for . This delinquency prevention social worker helping MOB go over a list of needed supplies: Crib, Car seat, bottles, formula, wipes, infant clothing, diapers. MOB aware of needed supplies but is not voicing plan for how to obtain supplies. MOB states plan to try to feed this evening. Active support and listening provided to MOB. Chucho AWAD, MIROSLAVA
[2020-04-26] VITALS (10 sets, daily range): BP systolic 124–154; BP diastolic 58–78; PULSE 71–85; RESP 16–18; TEMP 36.2–37.3
--- NOTE | 2020-04-26 08:02 | PN.OBGYN_ITS ---
Subjective: doing well no complaints pain controlled no CP SOB N V ambulating well tolerating po lochia moderate, going well - Physical Exam Vitals/I&O's: Vital Signs Temp Pulse Resp BP Pulse Ox 99.1 F 81 16 139/78 H 100 04/26/20 02:00 04/26/20 02:01 04/26/20 02:00 04/26/20 02:01 04/25/20 08:00 Oxygen Delivery Method Room Air Weight: 128 lb 12.8 oz Body Mass Index (BMI) 23.6 Intake and Output for Last 24 Hours 04/24/20 04/25/20 04/26/20 23:59 23:59 23:59 Intake Total 500.00 / 500.00 Output Total 250 / 250 Balance 250.00 / 250.00 General: Alert, Oriented x3 Laboratory Results 04/25/20 08:40: Sodium 139, Potassium 3.8, Chloride 105, Carbon Dioxide 24.0, Anion Gap 10, BUN 9, Creatinine 0.62, Estim Creat Clear Calc 110.66, Est GFR (MDRD) Af Amer 150, Est GFR (MDRD) Non-Af 124, BUN/Creatinine Ratio 14.5, Gluc ose 147 H, Calcium 9.0, Total Bilirubin 0.20, AST 22, ALT 11 L, Alkaline Phosphatase 143 H, Total Protein 5.7 L, Albumin 1.9 L, Globulin 3.8, Albumin/Globulin Ratio 0.5 L Current Medications Acetaminophen (Tylenol) 1,000 mg PO Q8H PRN PRN PRN Reason: Pain Score 1-310 Last Admin: 04/25/20 03:21 Dose: 1,000 mg Documented by: Bisacodyl (Dulcolax) 10 mg RECTAL UD PRN PRN Reason: If no BM Dibucaine (Dibucaine) 1 applic TOPICAL TID PRN PRN; Protocol PRN Reason: Discomfort Hydrocortisone (Hytone) 1 applic TOPICAL TID PRN PRN; Protocol PRN Reason: Discomfort Labetalol HCl (Trandate) 100 mg PO BID [facility] Last Admin: 04/25/20 22:31 Dose: 100 mg Documented by: Naproxen (Naprosyn) 500 mg PO Q8H PRN PRN PRN Reason: Pain Score 1-3/10 Last Admin: 04/25/20 16:58 Dose: 500 mg Documented by: Ondansetron HCl (Zofran) 4 mg IV Q4H PRN PRN PRN Reason: Nausea Senna/Docusate Sodium (Senokot-S, Maia-Colace) 1 - 2 tablet PO DAILY PRN PRN PRN Reason: Constipation Last Admin: 04/25/20 16:58 Dose: 2 tablet Documented by: Simethicone (Mylicon) 80 mg PO PCHS PRN PRN Reason: Indigestion/Stomach pain Sodium Chloride () 5 - 15 ml IV UD PRN PRN Reason: SALINE FLUSH Medical Necessity - Tobacco Use Smoking Status: Heavy Smoker (>10/day) Assessment/Plan All Active Problems (Last Updated 04/25/20 @ 02:[address] Radha Costello MD) Insufficient care (Acute) Late care (Acute) Drug use affecting (Acute) Tobacco use (Acute) Rh negative state in antepartum period (Acute) Supervision of high risk , antepartum (Acute) Short interval between pregnancies affecting , antepartum (Acute) (Acute) Flank pain (Acute) Elevated blood pressure affecting in third trimester, antepartum (Acute) Pyelonephritis affecting in third trimester (Acute) 39 weeks gestation of (Resolved) Active labor at term (Resolved) Anemia affecting (Resolved) s/p PPD # 1 1. routine post delivery care 2. bottle feeding 3. rh negative 4. rubella immune
--- NOTE | 2020-04-26 08:05 | DCINST_ITS ---
Discharge Diet: No Restrictions Discharge Activity: Return to Normal Activity, May not drive while taking narcotic pain medications., May Shower May resume sexual activity in: 4-6 weeks Call your doctor if your incision/area has: Continuous Slow Oozing, Sudden Increased Bleeding, Increased Pain/ Swelling, Increased Redness, Foul Smelling Discharge Additional Instructions: If you experience any of the following, contact your healthcare provider. * Bleeding that soaks a pad every hour for 2 hours * Fever 100.4 or higher * Unrelieved incision or abdominal pain * Swelling, redness, discharge or bleeding from your incision or episiotomy site * Your incision begins to separate * Problems urinating (including inability to urinate or burning while urinating). * Visual changes * Severe headache * Flu-like symptoms * Pain or redness in one of both of your breasts * Pain, warmth, tenderness or swelling in your legs, especially the calf area * Frequent nausea and vomiting * Symptoms of depression or anxiety If you experience any of the following, call 911 or go to the nearest Emergency Room. * Chest pain * Problems breathing * Seizure activity * Partial or complete paralysis of a body part, slurred speech, weakness or drooping of the face, or a sudden inability to walk or hold your balance Allergies/Adverse Reactions: Allergies No Known Allergies Allergy (Verified 04/25/20 01:56) Medications to take at Discharge No122/Iron/Folic Acid [ Multi Tablet] 1 each PO DAILY 03/20/19 Ferrous Sulfate [Slow Fe] 142 mg PO BID #60 tablet.er 03/07/20 Cephalexin [Keflex] 500 mg PO Q6 04/25/20 Please Follow Up With: Radha Costello MD - [phone] When: Call to make an appointment with your doctor in 6 weeks. If you had elevated Blood pressure or 4th degree laceration you will need to be seen in 2 weeks. Primary Care Physician: Care Physician,No Primary [Primary Care Provider] - Test Results: Test results from this visit will be discussed in further detail at your follow- up appointment, if applicable.
--- NOTE | 2020-04-26 08:05 | PCM.DCVAG ---
Discharge Diet: No Restrictions Discharge Activity: Return to Normal Activity, May not drive while taking narcotic pain medications., May Shower May resume sexual activity in: 4-6 weeks Call your doctor if your incision/area has: Continuous Slow Oozing, Sudden Increased Bleeding, Increased Pain/ Swelling, Increased Redness, Foul Smelling Discharge Additional Instructions: If you experience any of the following, contact your healthcare provider. Bleeding that soaks a pad every hour for 2 hours Fever 100.4 or higher Unrelieved incision or abdominal pain Swelling, redness, discharge or bleeding from your incision or episiotomy site Your incision begins to separate Problems urinating (including inability to urinate or burning while urinating). Visual changes Severe headache Flu-like symptoms Pain or redness in one of both of your breasts Pain, warmth, tenderness or swelling in your legs, especially the calf area Frequent nausea and vomiting Symptoms of depression or anxiety If you experience any of the following, call 911 or go to the nearest Emergency Room. Chest pain Problems breathing Seizure activity Partial or complete paralysis of a body part, slurred speech, weakness or drooping of the face, or a sudden inability to walk or hold your balance Allergies/Adverse Reactions: Allergies No Known Allergies Allergy (Verified 04/25/20 01:56) Medications to take at Discharge No122/Iron/Folic Acid [ Multi Tablet] 1 each PO DAILY 03/20/19 Ferrous Sulfate [Slow Fe] 142 mg PO BID #60 tablet.er 03/07/20 Cephalexin [Keflex] 500 mg PO Q6 04/25/20 Please Follow Up With: Radha Costello MD - [phone] When: Call to make an appointment with your doctor in 6 weeks. If you had elevated Blood pressure or 4th degree laceration you will need to be seen in 2 weeks. Primary Care Physician: Care Physician,No Primary [Primary Care Provider] - Test Results: Test results from this visit will be discussed in further detail at your follow-up appointment, if applicable.
--- NOTE | 2020-04-26 10:29 | CASEMGMT ---
Social Work Labor and Delivery Unit Handoff report received from MIROSLAVA Arizmendi. Medical records of mother of baby (MOB) and reviewed. MOB is familiar to this content writer from prior hospital encounters. Collaboration with nursing staff on how things have been going for MOB and baby since yesterday. Per RN, the father of baby (FOB) has not been present yet today. Noted in records and from conversations with nursing, that concerns continues to revolve around feeding issues, general care of baby with MOB being sleeping and nursing needing to remind MOB for care or nursing providing hands on care of related to feeding, changing diapers, clothing and bedding. Collaboration with business manager regarding discharge timeframe for this baby. Anticipate discharge tomorrow, 04.27.2020. Spoke with Malka from [facility] [place]), extension [phone]. Referral/updated information provided since initial call by Jennifer Nguyễn on 04.25.2020. Included in report today documentation by Chucho Nguyễn regarding voiced concerns by FOB regarding MOB's mother's home. Updated to anticipated discharge timeframe for the baby. Case to be screened in and [facility] to follow up with MOB. Plan: Social work continuing to follow. Will continue to collaborate with [facility] on planning for baby. Plan to meet with MOB as well. -AAKASH Coronado, DBA
[2020-04-26] MEDS: Labetalol 100 MG Tablet PO ×2 (14:15→22:41)
--- NOTE | 2020-04-26 19:46 | NURSING ---
Pt. signed off of floor at 1845, nursing had seen pt. coming back onto floor at ~1900. Pt. did not walk past nurses station, assumed pt. went to [facility] to get baby. Went with maintenance mechanic 2nd shift nurse to give report in pt's room, and pt. not in room. Checked around unit for pt. and pt. found in waiting area charging her phone. Pt. appears anxious, bouncing leg while talking with nursing. Pt. wondering about plan for d/c tomorrow, informed unsure of plans at this time. Pt. verbalizes understanding.
[2020-04-26] MEDS: Naproxen 250 MG Tablet 500 MG PO (22:41)
[2020-04-27 01:18] VITALS: BP 129/75; PULSE 87; RESP 18; TEMP 36.8
[2020-04-27 01:19] VITALS: BP 129/75; PULSE 87
[2020-04-27 08:27] VITALS: BP 140/73; PULSE 83; RESP 14; TEMP 37.2
[2020-04-27 08:29] VITALS: BP 140/73; PULSE 83; TEMP 37.2
[2020-04-27] MEDS: Labetalol 100 MG Tablet PO (11:08)
--- NOTE | 2020-04-27 11:10 | NURSING ---
In pt's room to awaken for her scheduled labetalol dose. Pt. sleeping, waking once nursing stated her name a couple of times. Pt. given med and just before nursing left room, Samara asked what was wrong with her infant. Told pt. that had had some episodes of breathing fast, and was taken to monitor, but after monitoring and checking on him, felt he was ok to come back to room, but per nursing and immigration associate, wanted to make sure that mother was more awake and alert and able to watch better before bringing him back to room. Pt. responded Oh. Ok. and rolled over and closed her eyes. Infant will remain in nsy with nursing until pt. able to be more alert.
--- NOTE | 2020-04-27 13:51 | PCM.PN.OB ---
Subjective: doing well no complaints pain controlled no CP SOB N V ambulating well tolerating po lochia moderate, bottle feeding going well - Physical Exam Vitals/I&O's: Vital Signs Temp Pulse Resp BP Pulse Ox 99.0 F 83 14 140/73 H 100 04/27/20 08:29 04/27/20 08:29 04/27/20 08:27 04/27/20 08:29 04/25/20 08:00 Oxygen Delivery Method Room Air Weight: 128 lb 12.8 oz Body Mass Index (BMI) 23.6 Intake and Output for Last 24 Hours 04/25/20 04/26/20 04/27/20 23:59 23:59 23:59 Intake Total 500.00 / 500.00 Output Total 250 / 250 Balance 250.00 / 250.00 General: Alert, Oriented x3 Current Medications Acetaminophen (Tylenol) 1,000 mg PO Q8H PRN PRN PRN Reason: Pain Score 1-3/10 Last Admin: 04/25/20 03:21 Dose: 1,000 mg Documented by: Bisacodyl (Dulcolax) 10 mg RECTAL UD PRN PRN Reason: If no BM Dibucaine (Dibucaine) 1 applic TOPICAL TID PRN PRN; Protocol PRN Reason: Discomfort Hydrocortisone (Hytone) 1 applic TOPICAL TID PRN PRN; Protocol PRN Reason: Discomfort Labetalol HCl (Trandate) 100 mg PO BID [facility] Last Admin: 04/27/20 11:08 Dose: 100 mg Documented by: Naproxen (Naprosyn) 500 mg PO Q8H PRN PRN PRN Reason: Pain Score 1-3/10 Last Admin: 04/26/20 22:41 Dose: 500 mg Documented by: Ondansetron HCl (Zofran) 4 mg IV Q4H PRN PRN PRN Reason: Nausea Senna/Docusate Sodium (Senokot-S, Maia-Colace) 1 - 2 tablet PO DAILY PRN PRN PRN Reason: Constipation Last Admin: 04/25/20 16:58 Dose: 2 tablet Documented by: Simethicone (Mylicon) 80 mg PO PCHS PRN PRN Reason: Indigestion/Stomach pain Sodium Chloride () 5 - 15 ml IV UD PRN PRN Reason: SALINE FLUSH Medical Necessity - Tobacco Use Smoking Status: Heavy Smoker (>10/day) Assessment/Plan All Active Problems (Last Updated 04/25/20 @ 02:[address] Radha Costello MD) Insufficient care (Acute) Late care (Acute) Drug use affecting (Acute) Tobacco use (Acute) Rh negative state in antepartum period (Acute) Supervision of high risk , antepartum (Acute) Short interval between pregnancies affecting , antepartum (Acute) (Acute) Flank pain (Acute) Elevated blood pressure affecting in third trimester, antepartum (Acute) Pyelonephritis affecting in third trimester (Acute) 39 weeks gestation of (Resolved) Active labor at term (Resolved) Anemia affecting (Resolved) s/p PPD # 2 1. routine post delivery care 2. bottle feeding- support given 3. rh negative 4. rubella immune
[2020-04-27 14:18] VITALS: BP 125/76; PULSE 88; TEMP 37.2
[2020-04-27 14:20] VITALS: BP 125/76; PULSE 88; RESP 18; TEMP 37.2
--- NOTE | 2020-04-27 15:38 | CASEMGMT ---
Social Work Labor and Delivery Unit Received updates from nursing staff today regardings mother of baby (MOB) seeming lack of engagement with baby, as evidenced by MOB needing prompting with much of baby care, not changing diapers/bedding/clothing when needing to be addressed. Per nursing, MOB has done some feedings with the baby, but does do this when baby is crying and then MOB goes back to sleep right after. There was concern today with baby's breathing today, and with MOB's lack of engagement there was concern about baby being appropriately monitored by MOB who has been alone. Per nursing, MOB did ask once about baby since baby being cared for by nursing staff. Per RN, MOB was given opportunity to have baby in room when MOB could be more away and care for baby. Per RN, MOB responded okay but did not ask about having the baby. This card writer hand presented to MOB's room to check in. MOB laying in bed,awake, and alert. MOB smiled at this card writer hand when social media sr strategy manager reintroduced self. MOB reports that desires to go home today. MOB reports plan with children services is for baby to go with the father of baby (FOB) at discharge. MOB reports to be okay with this plan as still sees other children, whom FOB has custody of. MOB reports plan to return to her parents home at discharge. This card writer hand explored whether MOB is willing to have any referrals to mental health counseling and substance use treatment.. MOB declines both, reporting that plans to get a job and try to get things together. MOB appears to have no interest in any formalized support to address behavioral health needs. MOB agrees to take an informational packet ton depression however. Called [facility], spoke with Guevara Jim to update. Sheba confirms the plan is for FOB to take baby to his home and care for baby. [facility] will be following up with this family in the community. Received call from nursing reporting that FOB arrived to the unit and ready to take baby home. Updated to conversation with [facility] this date. This card writer hand presented back to MOB's room and provided information on depression. Packet includes resources and hotlines numbers to call. FOB on phone but this card writer hand able to ask if FOB needs anything. FOB rapports this is third child and denies any needs. Plan: MOB and baby discharging today together. Baby will be staying with FOB and MOB with her parents. [facility] to follow this family in the community. MOB declines any sort of referrals to address her behavioral health needs. -AAKASH Coronado, [employer]
[2020-04-28 06:07] LABS: Amphetamine Negative (Cutoff=500); Methamphetamines Positive (.)
[2020-04-28 12:32] LABS: Amphetamine Ur Confirm Positive (.)
== END 2020-04-27 16:40 | disposition home or self-care (01) | DRG 560 ==
LOC: OBT 01:32 → WP 01:32
PROVIDERS: Admitting Provider Obstetrics & Gynecology; Referring Provider Obstetrics & Gynecology; Visit Provider Obstetrics & Gynecology
DX: O62.3 Precipitate labor (principal); O23.03 Infections of kidney in pregnancy, third trimester; O09.33 Supervision of pregnancy with insufficient antenatal care, third trimester; O99.323 Drug use complicating pregnancy, third trimester; F11.20 Opioid dependence, uncomplicated; O99.333 Smoking (tobacco) complicating pregnancy, third trimester; F17.210 Nicotine dependence, cigarettes, uncomplicated; Z3A.38 38 weeks gestation of pregnancy; Z37.0 Single live birth; Z67.91 Unspecified blood type, Rh negative; Z91.19 Patient's noncompliance with other medical treatment and regimen; Z30.430 Encounter for insertion of intrauterine contraceptive device; O41.1230 Chorioamnionitis, third trimester, not applicable or unspecified; O43.893 Other placental disorders, third trimester
CPT/HCPCS: 59025; 59050; 80053; 80307; 85025; 85461; 86850; 86900; 86901; 88307; 90384; 99218; G0378; J2790

== ENCOUNTER → 2020-06-15 15:35 | Outpatient (CLI) | payer MEDICAID, SELFPAY ==
[2020-06-15 14:43] VITALS: BMI 23.6
[2020-06-15 15:55] LABS: Absolute Lymphocyte Count 2.19 X10^3/uL (0.83-4.51); Absolute Neutrophil Count 5.5 X10^3/uL (2.0-7.7); Basophil# 0.05 X10^3/uL; Basophil% 0.6 % (0-1); Eosinophils% 2.3 % (0-5); Hematocrit 39.9 % (37-47); Hemoglobin 12.3 g/dL (12.0-15.0); Lymphocyte # 2.19 X10^3/ul (4.0); Lymphocyte % 25.1 % (19-41); Mean Corp Hgb Conc 30.8 g/dL (32-36); Mean Corpuscular Volume 84.4 fL (81-99); Monocyte# 0.83 X10^3/uL; Monocyte% 9.5 % (0-10); NRBC Flagged by Analyzer 0 % (0-5); Neutrophil # 5.45 X10^3/uL (2.7-7.7); Neutrophil % 62.3 % (47-70); Platelet Count 389 K/mm3 (150-450); RBC Distribution Width CV 19.9 % (11.6-14.6); RBC Distribution Width SD 60.1 fl (35.1-43.9); Red Blood Count 4.73 M/mm3 (4.2-5.4); White Blood Count 8.7 K/mm3 (4.4-11.0)
[2020-06-15 16:08] LABS: hCG Titer Quant., Serum < 1 mIU/mL (1-3)
[2020-06-15 16:15] LABS: Thyroid Stim Hormone (TSH) 0.91 uIU/mL (0.358-3.74)
[2020-06-15 22:05] LABS: Chlamydia Trachomatis by PCR Negative (Negative)
[2020-06-15 22:06] LABS: Neisserai gonorrhoeae by PCR Negative (Negative); Probe Check PASS; Sample Adequacy Control PASS; Specimen Processing Control PASS
[2020-06-20 14:56] LABS: HPV Reflexed? NOT INDICATED
== END ==
PROVIDERS: Referring Provider Obstetrics & Gynecology; Visit Provider Obstetrics & Gynecology
DX: Z12.4 Encounter for screening for malignant neoplasm of cervix (principal); Z11.3 Encounter for screening for infections with a predominantly sexual mode of transmission; N93.9 Abnormal uterine and vaginal bleeding, unspecified
CPT/HCPCS: 36415; 84443; 84702; 85025; 87491; 87591; 88175; G0145

== ENCOUNTER 2025-02-16 13:12 | Emergency (ER) | payer MEDICAID, SELFPAY ==
[2025-02-16 13:15] VITALS: BP 148/106; PULSE 108; RESP 15; TEMP 36.4; O2SAT 100; BMI 22.4
--- NOTE | 2025-02-16 13:26 | EKG12_ITS ---
Test Reason : NAUSEA Blood Pressure : */* mmHG Vent. Rate : 93 BPM Atrial Rate : 93 BPM P-R Int : 130 ms QRS Dur : 92 ms QT Int : 364 ms P-R-T Axes : 75 77 48 degrees QTcB Int : 452 ms Normal sinus rhythm Nonspecific ST abnormality Abnormal ECG Confirmed by KIKI LEE, KEVIN ([id number]), state editor JAI RAMIREZ ([id number]) on 02/17/2025 8:37:30 AM Referred By: Confirmed By: KEVIN SWANSON MD
--- NOTE | 2025-02-16 13:28 | EX.ED.DYSGE1 ---
HPI History of Present Illness Chief Complaint: Nausea/Vomiting Narrative Narrative: 29-year-old female who denies significant past medical history presents with lightheadedness and nausea. She states it was sudden onset today when she was at work. 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 She states that it can be worse with standing. She feels very lightheaded and nauseated without any vomiting. No recent diarrhea. No fevers or chills, no cough. She denies dysuria or hematuria as well. 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 HEENT: No sore throat. No neck pain No rhinorrhea. Cardiovascular: No chest pain. No palpitations. No pedal edema. Respiratory: No cough, no shortness of breath. Abdominal: No abdominal pain. Positive nausea. No vomiting. No diarrhea. Genitourinary: No dysuria. No hematuria. Musculoskeletal: No myalgias. No arthralgias. Neurologic: No headaches. Positive lightheadedness and dizziness, worse with standing. EXAM Physical Exam Narrative Exam Narrative: Afebrile. Vital signs noted. Nontoxic-appearing. Cardiovascular examination reveals mild tachycardia. HEENT examination grossly unremarkable, PERRL, EOMI. Neck soft and supple without meningismus. Abdomen is soft and nontender without guarding or rebound. Positive bowel sounds. Neurological examination is nonfocal and nonlateralizing. Moves all extremities. Const Vital Signs: 02/16/25 13:15 02/16/25 14:02 Temperature 97.5 F L Temperature Source Oral Pulse Rate 108 H 76 Respiratory Rate 15 15 Blood Pressure 148/106 H 146/87 H Blood Pressure Mean 120 106 Pulse Ox 100 100 Oxygen Delivery Method Room Air Room Air MDM MDM MDM Narrative Medical decision making narrative: Differential diagnosis includes but not limited to intravascular volume depletion versus POTS versus dehydration versus other electrolyte imbalance. Symptomatic treatment will be given with a bolus of IV fluids and antinausea medication in the form of Zofran. I will check her laboratory work including CBC and CMP. EKG was obtained and interpreted by myself independently as normal sinus rhythm at 93 bpm without ectopy or acute ST changes. No STEMI. Reviewed her laboratory work and she has normal white count of 10.1, hemoglobin normal at 13.1, hematocrit 37.9, platelet 345. Her CMP is remarkable for CO2 of 19.6 and anion gap slightly elevated at 16 but she has sodium of 138 and potassium 3.4, chloride 102. This may be more lab error as they have been experiencing this over the past few weeks. She may also be hyperventilating. Urinalysis is negative for infection but she does have 50 ketones, positive for nitrites but 0-5 WBCs. I do not feel antibiotics are indicated. Serum is negative. Ethyl alcohol is negative as well. While I do not feel CT imaging is indicated, RN did have concern regarding any bruising on her arms. Social work have been consulted to speak with patient. Upon repeat examination, she is feeling improved. At this point in time, medically, I do not feel that she requires admission or observation. I feel she can be discharged to follow-up. Return instructions to the emergency department were reviewed. Disposition is discharged home in stable condition. History & Record Review Discussion w/independent historian: Patient Lab Data Attestation: I reviewed the patient's lab results. Labs: Laboratory Results - last 24 hr 02/16/25 02/16/25 13:34 14:32 WBC 10.1 RBC 4.31 Hgb 13.1 Hct 37.9 MCV 87.9 MCH 30.4 MCHC 34.6 RDW Std Deviation 38.8 RDW Coeff of Dorcas 11.9 Plt Count 345 MPV 9.2 Immature Gran % (Auto) 0.400 Neut % (Auto) 70.6 H Lymph % (Auto) 18.8 L [place] % (Auto) 8.7 Eos % (Auto) 1.0 Baso % (Auto) 0.5 Absolute Neuts (auto) 7.1 Absolute Lymphs (auto) 1.89 Nucleated RBC % 0 Sodium 138 Potassium 3.4 Chloride 102 Carbon Dioxide 19.6 L Anion Gap 16 H BUN 15 Creatinine 0.74 Estim Creat Clear Calc 88.72 Est GFR (MDRD) Non-Af 112 BUN/Creatinine Ratio 19.5 Glucose 141 H Calcium 10.0 Total Bilirubin 0.49 AST 28 ALT 12 Alkaline Phosphatase 73 Total Protein 7.8 Albumin 4.6 Globulin 3.1 Albumin/Globulin Ratio 1.5 Serum , Qual NEGATIVE Urine Color Yellow Urine Clarity Sl. Cloudy Urine pH 8.0 Ur Specific [place] 1.015 Urine Protein 30 H Urine Glucose (UA) Normal Urine Ketones 50 H Urine Occult Blood 25 H Urine Nitrite Positive H Urine Bilirubin Negative Urine Urobilinogen 1 H Ur Leukocyte Esterase 25 H Urine RBC 0-5 SEEN Urine WBC 0-5 SEEN Ur Squamous Epith Cells 0-5 SEEN Urine Bacteria 0 SEEN Urine Mucus 1+ Ethyl Alcohol < 10.1 Discharge Plan Triage Chief Complaint: Nausea/Vomiting ED Provider: Gómez Ayala Dx/Rx/DC Orders Clinical Impression: Lightheadedness, Nausea Instructions: ED Near-Fainting, Uncertain Cause Prescriptions: No Action NK Primary Care Provider: Care Physician,No Primary Referrals: Care Physician,No Primary [Primary Care Provider] - Activity Restrictions/Additional Instructions: Drink plenty of oral fluids. Rest today. Follow-up with your primary care provider. Return with new or worsening symptoms. Print Language: Albanian Disposition Disposition: Home, Self Care
[2025-02-16] MEDS: Ondansetron 4 MG/2 ML Vial IV (13:39)
[2025-02-16 13:44] LABS: Absolute Lymphocyte Count 1.89 X10^3/uL (0.83-4.51); Absolute Neutrophil Count 7.1 X10^3/uL (2.0-7.7); Basophil# 0.05 X10^3/uL; Basophil% 0.5 % (0-1); Hematocrit 37.9 % (37-47); Hemoglobin 13.1 g/dL (12.0-15.0); Lymphocyte # 1.89 X10^3/ul (0.83-4.51); Lymphocyte % 18.8 % (19-41); Mean Corp Hgb Conc 34.6 g/dL (32-36); Mean Corpuscular Hgb 30.4 pg (27.0-32.0); Mean Corpuscular Volume 87.9 fL (81-99); Mean Platelet Vol. 9.2 fl (6.2-12.0); Monocyte# 0.88 X10^3/uL; Monocyte% 8.7 % (0-10); NRBC Flagged by Analyzer 0 % (0-5); Neutrophil % 70.6 % (47-70); Platelet Count 345 K/mm3 (150-450); RBC Distribution Width CV 11.9 % (11.6-14.6); RBC Distribution Width SD 38.8 fl (35.1-43.9); Red Blood Count 4.31 M/mm3 (4.2-5.4); White Blood Count 10.1 K/mm3 (4.4-11.0)
[2025-02-16 14:02] VITALS: BP 146/87; PULSE 76; RESP 15; O2SAT 100
[2025-02-16 14:07] LABS: Internal QC Validated? YES +Cl - CLEAR BKGD; Pregnancy, Serum, hCG Quali. NEGATIVE Negative
--- NOTE | 2025-02-16 14:18 | ED.RN ---
EMS REPORTS TRANSFER COORDINATOR AT WORK VOICED CONCERNED FOR ABUSE AT HOME. EMS STATES THAT PT OFTEN COMES TO WORK COVERED IN BRUISES WITH CONCUSSION LIKE SYMPTOMS MULTIPLE BRUISES NOTED ON LEFT UPPER EXTREMITY. PER EMS, PT STATES SHE TRIPPED OVER THE DOG AT HOME. ADDITIONALLY, PT REPORTS RECENTLY BREAKING PHONE UNABLE TO PROVIDE PHONE NUMBER FOR REGISTRATION, STATING THE PHONE NUMBER I GAVE FOR YOU IS ACTUALLY THE PHONE NUMBER FOR MY SIGNIFICANT OTHER. WE HAVE THE SAME PHONE RIGHT NOW
[2025-02-16 14:36] LABS: Bacteria 0 SEEN /hpf (None Seen)
[2025-02-16 14:40] LABS: Alcohol, Blood (Medical)-Serum < 10.1 mg/dL (<=10.0)
[2025-02-16 14:40] LABS: Color, Urine Yellow (Yellow); Glucose, Dipstick Normal (Normal); Ketone-Dipstick 50 mg/dl (Negative); Leukocyte Esterase-Dipstick 25 /ul (Negative); Nitrite-Dipstick Positive (Negative); Occult Blood-Urine 25 /ul (Negative); Protein-Dipstick 30 mg/dl (Negative); Specific Gravity, Urine 1.015 (1.002-1.030); Urine Bilirubin Dipstick Negative (Negative); Urine Clarity Sl. Cloudy (Clear); Urine Urobilinogen 1 mg/dl (Normal)
[2025-02-16 14:41] LABS: ALB/GLOB Ratio 1.5 RATIO (0.9-2.4); AST(SGOT) 28 U/L (<=31); Alanine Aminotransfer ALT/SGPT 12 U/L (<=34); Albumin, Serum 4.6 g/dL (3.5-5.0); Alkaline Phosphatase 73 U/L (35-104); Anion Gap 16 (5-15); BUN 15 mg/dL (4-19); BUN/Creat Ratio 19.5 RATIO (10-20); Carbon Dioxide 19.6 mmol/L (21.0-32.0); Chloride 102 mmol/L (98-108); Creatinine, Serum 0.74 mg/dL (0.70-1.20); EST Glomerular Filtration Rate 112 (>60); Estimated Creatinine Clearance 88.72 ml/min (50-250); Globulin 3.1 g/dL (2.2-4.2); Glucose 141 mg/dL (70-99); Potassium 3.4 mmol/L (3.3-5.1); Protein, Total 7.8 g/dL (5.9-8.4); Sodium Level 138 mmol/L (133-145); Total Bilirubin 0.49 mg/dL (0.00-1.30)
[2025-02-16 14:54] LABS: Mucous, Urine 1+ /hpf (<or=2+); Red Blood Cells-Urine 0-5 SEEN /hpf (0-5); Squamous Epithelial Cells - UA 0-5 SEEN /hpf (5-10); White Blood Cells 0-5 SEEN /hpf (0-5)
[2025-02-16 15:28] VITALS: BP 145/76; BP 155/79; BP 178/88; PULSE 100; PULSE 113; PULSE 115
[2025-02-16 15:33] VITALS: BP 147/62; PULSE 102; RESP 15; TEMP 36.9; O2SAT 98
[2025-02-16 15:48] LABS: Amphetamine Urine PRESUMPTIVE POSITIVE (<1000 ng/mL); Barbiturate Urine NEGATIVE (< 200 ng/mL); Benzodiazepine Urine NEGATIVE (< 200 ng/mL); Buprenorphine Urine NEGATIVE (< 200 ng/mL); Cocaine Urine NEGATIVE (< 300 ng/mL); Fentanyl, Urine NEGATIVE; Methadone Urine NEGATIVE (< 300 ng/mL); Opiates Urine NEGATIVE (< 300 ng/mL); Oxycodone, Urine NEGATIVE (< 100 ng/mL); PCP Urine NEGATIVE (< 25 ng/mL); THC Urine PRESUMPTIVE POSITIVE (< 50 ng/mL)
--- NOTE | 2025-02-16 16:48 | CM.ED ---
Social Work SW was consulted due to EMS stating patients coworkers were concerned about patients safety at home. SW introduced self to patient and explained role with hospital. Patient was consenting to visit, but denied any issues. Patient told nursing staff that she hurt her head because she tripped over her dogs, patient told SW that she slipped outside in the mud and hit her head. Patient was asked if she was safe in her home, patient again denied any concerns. Patient did tell SW that she was starting to look for her own apartment as she is currently living with her boyfriend and his parents. When asked the reason for the move, patient stated my boyfriend just has some maturity issues, I think its time for me to find my own place. Patient also stated that she does not currently have a vehicle or licence and is looking for a primary care physician. Patient was given community action information and phone number, [employer] card, metro housing list, food pantries and meal list, transportation options including [facility] van and [employer] transportation benefits, and [facility] provider list. Patient was accepting and thankful for resources. Paola Muse, SERVICE CENTER TECHNICIAN, SENIOR PROPERTY ACCOUNTANT
== END 2025-02-16 15:34 | disposition home or self-care (01) ==
PROVIDERS: Emergency Provider Emergency Medicine; Visit Provider Emergency Medicine
DX: R11.0 Nausea (principal); R42 Dizziness and giddiness; F17.200 Nicotine dependence, unspecified, uncomplicated
CPT/HCPCS: 80053; 80307; 81001; 82077; 84703; 85025; 93005; 96374; 99285; A4216; J2405

== ENCOUNTER 2025-08-09 16:20 | Emergency (ER) | payer MEDICAID, SELFPAY ==
[2025-08-09 16:21] VITALS: BP 136/92; PULSE 100; RESP 18; TEMP 37.1; O2SAT 97; BMI 20.9
[2025-08-09 17:27] LABS: Hematocrit 38.1 % (37-47); Hemoglobin 12.6 g/dL (12.0-15.0); Immature Granulocytes Count 0.020 X10^3/uL (0.0-0.0); Mean Corp Hgb Conc 33.1 g/dL (32-36); Mean Corpuscular Volume 91.6 fL (81-99); Mean Platelet Vol. 9.2 fl (6.2-12.0); NRBC Flagged by Analyzer 0 % (0-5); Platelet Count 269 K/mm3 (150-450); RBC Distribution Width CV 11.9 % (11.6-14.6); RBC Distribution Width SD 39.9 fl (35.1-43.9); Red Blood Count 4.16 M/mm3 (4.2-5.4); White Blood Count 6.1 K/mm3 (4.4-11.0)
[2025-08-09 17:50] LABS: Color, Urine Yellow (Yellow); Glucose, Dipstick Normal (Normal); Ketone-Dipstick Negative (Negative); Leukocyte Esterase-Dipstick 500 /ul (Negative); Nitrite-Dipstick Positive (Negative); Occult Blood-Urine 250 /ul (Negative); Protein-Dipstick 30 mg/dl (Negative); Specific Gravity, Urine 1.025 (1.002-1.030); Urine Bilirubin Dipstick Negative (Negative)
[2025-08-09 17:58] LABS: Internal QC Validated? YES +Cl - CLEAR BKGD; Pregnancy, Serum, hCG Quali. NEGATIVE Negative; Record Kit Lot#, Serum Preg. 980607
[2025-08-09 18:21] VITALS: BP 127/70; PULSE 80; RESP 15; O2SAT 100
[2025-08-09 18:22] LABS: Red Blood Cells-Urine 25-50 SEEN /hpf (0-5); Squamous Epithelial Cells - UA 0-5 SEEN /hpf (5-10)
[2025-08-09 18:23] LABS: Mucous, Urine RARE /hpf (<or=2+)
[2025-08-09 20:00] VITALS: BP 128/80; PULSE 93; RESP 18; TEMP 36.6; O2SAT 100
--- NOTE | 2025-08-09 20:11 | EX.ED.DYSGE1 ---
HPI History of Present Illness Chief Complaint: Abd Pain Detail of Chief Complaint: Patient presents with bilateral lower abdominal pain. Onset/Context/Timing Onset: Days Context: Gradual Onset Timing: Continuous and Waxes and wanes Quality: Pain right and left lower abdomen. Location: Lower abdomen Current Severity: Mild Maximum Severity: Severe Worsened by: Palpation and walking Relieved by: Nothing Associated Symptoms Associated Symptoms: Frequency, dysuria, and discharge. Also endorses dyspareunia. Narrative Narrative: Patient is a 30-year-old female. She has a Mirena device in place for contraceptive. She states she has abnormal menses. She denies history of STI. She denies history of endometriosis ovarian cyst. She reports dyspareunia for the past week. She also reports dysuria, frequency and discharge uncertain if this is from her vagina or in her urine. She notices it when she urinates. She does complain of lower back pain. She denies flank pain. She denies fever or chills. She denies night sweats. She denies nausea, vomiting or diarrhea. Prior similar symptoms: No Recent Illness/Hospitalization: No [facility] Medical History Pyelonephritis Methadone use Home Medications ?Medication ?Instructions ?Recorded ?Last Taken ?Type doxycycline monohydrate 100 mg 100 mg PO BID #20 CAPSULES 08/09/25 Unknown Rx capsule hydrocodone-acetaminophen 5-325mg 1 tab PO Q6H PRN PRN Pain 3 days 08/09/25 Unknown Rx 5mg-325mg #10 TABLETS Allergy/AdvReac Type Severity Reaction Status Date / Time No Known Allergies Allergy Verified 08/09/25 16:21 Social History Smoking Status: Heavy Smoker (>10/day) alcohol intake: never substance use type: marijuana caffeine: Yes what type of physical activity do you participate in: none seatbelt use: never do you feel safe at home: Yes 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 ROS ROS ED Constitutional Constitutional ED: Denies chills, fever(s), subjective or sweats Cardiovascular Cardiovascular: Denies chest pain or palpitations Respiratory/Chest Respiratory/Chest: Denies cough, dyspnea or dyspnea on exertion Gastrointestinal Gastrointestinal: Reports abdominal pain; Denies constipation, diarrhea, melena, nausea or vomiting Genitourinary Genitourinary ED: Reports dysuria and urinary frequency; Denies hematuria Musculoskeletal Musculoskeletal: Reports back pain; Denies arthralgias, myalgias or neck pain Integumentary Denies Abrasions or rash Neurologic Neurologic: Denies paresthesias or weakness Psychiatric Psychiatric: Denies anxiety or depression Endocrine Endocrinology: Denies cold intolerance or heat intolerance Hematologic/Lymphatic Hematologic/Lymphatic: Reports systems reviewed and no addt'l complaints, except as documented EXAM Physical Exam Const Vital Signs: 08/09/25 16:21 08/09/25 18:21 08/09/25 20:00 Temperature 98.7 F Temperature Source Oral Pulse Rate 100 80 93 Respiratory Rate 18 15 18 Blood Pressure 136/92 H 127/70 H 128/80 H Blood Pressure Mean 106 89 96 Pulse Ox 97 100 100 Oxygen Delivery Method Room Air Room Air 08/09/25 20:00 Temperature 97.8 F Temperature Source Pulse Rate 93 Respiratory Rate 18 Blood Pressure 128/80 H Blood Pressure Mean 96 Pulse Ox 100 Oxygen Delivery Method Positive well nourished and well developed Constitutional Narrative: Patient appears slightly uncomfortable. She is not febrile. Blood pressure slightly elevated. General Appearance ED: well developed and pallor HEENT Reports moist mucous membranes HEENT Narrative: Head is atraumatic and normocephalic. Ears are normal. Nares are patent. Posterior pharynx is normal Eyes PERRL and EOMs intact bilaterally General Eye ED: Negative for pale conjunctiva or scleral icterus Neck no lymphadenopathy, supple and no JVD Resp normal respiratory effort and clear to auscultation bilaterally Cardio regular rate, regular rhythm, S1 normal heart sound, S2 normal heart sound and no murmurs GI non-distended and no masses; Negative for non-tender or hepatosplenomegaly Inspection: Negative for abdominal distention Auscultation: hypoactive bowel sounds Palpation: soft, tender LLQ and RLQ and guarding LLQ and RLQ; Negative for splenomegaly, mass or rebound tenderness present Narrative: There is significant chatter. There is no inguinal lymphadenopathy. There is no evidence of inguinal hernia. There is no skin lesion Back/Spine no CVA tenderness Extremity normal to inspection General Extremety ED: Negative for edema or tenderness General Extremity: Negative for edema Neuro oriented x3 and CN's II-XII intact bilaterally Sensorium / Orientation: alert Psych mental status grossly normal Skin no rashes or lesions noted, no wounds and skin turgor normal General Skin Exam: pallor; Negative for elasticity normal or jaundice MDM MDM MDM Narrative Medical decision making narrative: Differential diagnosis includes acute cystitis, appendicitis, diverticulitis, abdominal pain of unknown etiology, gynecologic pathology would include ruptured ovarian cyst, salpingitis. Urine for GC chlamydia was obtained as well as UA white count. History & Record Review Additional record(s) reviewed:: Prior outpatient record (Office visit with Dr. Radha Costello for care June 2020.) and Prior ED visit (Seen by Dr. Blanca Akbar for lightheadedness February 2025.) Lab Data Lab results narrative: CBC is unremarkable. Urinalysis is remarkable for occult blood, nitrites, 25-50 RBCs and WBCs with 0-5 epithelial cells and 1+ bacteria. Urine was positive for chlamydia. Labs: Laboratory Results - last 24 hr 08/09/25 08/09/25 17:00 17:20 WBC 6.1 RBC 4.16 L Hgb 12.6 Hct 38.1 MCV 91.6 MCH 30.3 MCHC 33.1 RDW Std Deviation 39.9 RDW Coeff of Dorcas 11.9 Plt Count 269 MPV 9.2 Immature Gran % (Auto) 0.300 Neut % (Auto) 68.4 Lymph % (Auto) 17.2 L [place] % (Auto) 11.8 H Eos % (Auto) 1.6 Baso % (Auto) 0.7 Absolute Neuts (auto) 4.2 Absolute Lymphs (auto) 1.05 Nucleated RBC % 0 Serum , Qual NEGATIVE Urine Color Yellow Urine Clarity Cloudy Urine pH 6.0 Ur Specific [place] 1.025 Urine Protein 30 H Urine Glucose (UA) Normal Urine Ketones Negative Urine Occult Blood 250 H Urine Nitrite Positive H Urine Bilirubin Negative Urine Urobilinogen 1 H Ur Leukocyte Esterase 500 H Urine RBC 25-50 SEEN Urine WBC 25-50 SEEN Ur Squamous Epith Cells 0-5 SEEN Urine Bacteria 1+ Urine Mucus RARE Treatment and Re-Evaluation :: With no prior history of STI complaint of dyspareunia bilateral adnexal/lower abdominal pain suspect patient has acute salpingitis/PID. She also may have a UTI. Culture was sent. She was treated with 10-day course of doxycycline which will cover both pathology as well as the chlamydia. She was informed that her sexual partner will need to be treated. Discharge Plan Triage Chief Complaint: Abd Pain Other Complaint: Female C/O ED Provider: Ritchie Ledesma Dx/Rx/DC Orders Clinical Impression: Acute pelvic inflammatory disease (PID), Complicated urinary tract infection, Bilateral lower abdominal pain Instructions: ED Pelvic Inflammatory Disease Prescriptions: New hydrocodone-acetaminophen 5-325 mg tablet 1 tab PO Q6H PRN PRN (Reason: Pain) 3 Days Qty: 10 0RF doxycycline monohydrate 100 mg capsule 100 mg PO BID Qty: 20 0RF Stand Alone Forms: ED Work / School Excuse Primary Care Provider: Care Physician,No Primary Referrals: Radha Costello MD [Med Staff - Active Staff, Obstetrics-Gynecology (OBGYN)] - 3-5 Days if not improving Care Physician,No Primary [Primary Care Provider, Medical] Activity Restrictions/Additional Instructions: Return if you have a temperature greater than 100, your pain becomes severe, unable to eat or drink anything Your sexual partner needs to be tested and treated for STI Take medication as prescribed until gone. Print Language: Nigerian Disposition Disposition: Home, Self Care Discharge Date/Time: 08/09/25 20:25
== END 2025-08-09 20:25 | disposition home or self-care (01) ==
PROVIDERS: Emergency Provider Emergency Medicine; Visit Provider Emergency Medicine
DX: N73.0 Acute parametritis and pelvic cellulitis (principal); N39.0 Urinary tract infection, site not specified; Z97.5 Presence of (intrauterine) contraceptive device; R10.31 Right lower quadrant pain; R10.32 Left lower quadrant pain; N94.10 Unspecified dyspareunia; F17.200 Nicotine dependence, unspecified, uncomplicated
CPT/HCPCS: 81001; 84703; 85025; 87491; 87591; 99285; A4216